=== PATIENT | female | born 1955 | race Caucasian/White ===

== ENCOUNTER → 2019-06-01 | Outpatient (CLI) | payer OTHER ==
[~2019-06-01] MED LIST: ALBUTEROL SULF8.5 GM IH; CLONAZEPAM0.5 MG PO; CLONIDINE HCL0.1 MG PO; DICYCLOMINE HCL20 MG PO; DIOVAN320 MG PO; GABAPENTIN300 MG PO; HYDROCODON-ACE1 EAC3 PO; LEVOTHYROXINE25 MCG PO; MECLIZINE HCL12.5 MG PO; MELOXICAM15 MG PO; NORTRIPTYLINE H25 MG PO; OMEPRAZOLE40 MG PO; PREDNISONE10 MG PO; SYMBICORT 16010.2 GM INH
--- NOTE | 2019-06-06 08:20 | Diagnostic Imaging Report ---
#[id number] - MGSCRBIL #BILATERAL DIGITAL SCREENING MAMMOGRAM WITH CAD: 06/01/2019 CLINICAL: Routine screening. Comparison is made to exam dated: 11/30/2012 mammogram - [facility]. There are scattered fibroglandular elements in both breasts. Current study was also evaluated with a Computer Aided Detection (CAD) system. No significant masses, calcifications, or other findings are seen in either breast. There has been no significant interval change. IMPRESSION: NEGATIVE There is no mammographic evidence of malignancy. A 1 year screening mammogram is recommended. The patient will be notified by letter of the results. JEAN KOCH M.D., mc/eliud:06/03/2019 10:09:29 Purchasing Buyer: Malinda TOBIAS)(M), [facility] letter sent: Normal Exam Mammogram BI-RADS: 1 Negative
== END ==
LOC: CARD 14:08
PROVIDERS: ATTEND Internal Medicine
DX: I73.9 Peripheral vascular disease, unspecified (principal); Z12.31 Encounter for screening mammogram for malignant neoplasm of breast
CPT/HCPCS: 77067; 93925

== ENCOUNTER → 2020-07-20 | Outpatient (CLI) | payer OTHER | LOC: MAMMO 14:00 | PROVIDERS: ATTEND Internal Medicine | DX: Z12.31 Encounter for screening mammogram for malignant neoplasm of breast (principal) | CPT/HCPCS: 77067 ==

== ENCOUNTER → 2020-09-12 | Outpatient (CLI) | payer OTHER ==
--- NOTE | 2020-09-12 09:48 | Diagnostic Imaging Report ---
Exam: Ultrasound extremity Limited right History: Right groin hernia Findings: Transverse and longitudinal ultrasonographic imaging was obtained of the right groin region with grayscale imaging. Additionally, comparison imaging was obtained of the left groin. No abnormal fluid collection is seen. No definite right groin hernia or peristalsing bowel is seen. Impression: No definite right groin hernia or peristalsing bowel is seen. CT scan may be of benefit. Signed by: Dr. Chris Diaz M.D. on 09/12/2020 9:45 AM
== END ==
LOC: US 09:02
PROVIDERS: ATTEND Internal Medicine
DX: K40.90 Unilateral inguinal hernia, without obstruction or gangrene, not specified as recurrent (principal)
CPT/HCPCS: 76882

== ENCOUNTER 2022-03-11 01:40 | Inpatient (IN) | payer MEDICARE, OTHER ==
[2022-03-11] VITALS (25 sets, daily range): BP systolic 90–143; BP diastolic 51–104
[~2022-03-11] VITALS: Ht 144.8 cm; Wt 45.8 kg
[2022-03-11] MEDS: IPRATROPIUM BROMIDE 0.02% 2.5 ML NEB NEB ONE ×2 (01:30→03:10)
[2022-03-11] MEDS ORDERED: ALBUTEROL SULF 0.083% NEB SOLN 3 ML NEB NEB STA (01:42)
[2022-03-11] MEDS ORDERED: ALBUTEROL SULF 0.083% NEB SOLN 3 ML NEB ONE (01:57)
[2022-03-11] MEDS ORDERED: IPRATROPIUM BROMIDE 0.02% 2.5 ML NEB ONE (01:58)
[2022-03-11] MEDS ORDERED: ACETAMINOPHEN 325 MG TAB PO ONE (02:00)
[2022-03-11] MEDS ORDERED: ACETAMINOPHEN 1000 MG/100 ML IV STA (02:02)
[2022-03-11 02:05] LABS: BASOPHILS % 0.4 % (0.0-1.0); HEMATOCRIT 48.6 % (34.2-44.1); HEMOGLOBIN 15.6 g/dL (12.0-16.0); LYMPHOCYTES # (AUTO) 2.1 (1.0-3.2); LYMPHOCYTES % 23.2 % (18.0-39.1); MEAN CORPUSCULAR HEMOGLOBIN 29.7 pg (28-32); MEAN CORPUSCULAR HGB CONC 32.1 g/dL (31-35); MEAN CORPUSCULAR VOLUME 92.6 fL (81-99); MONOCYTES # (AUTO) 0.5 (0.2-0.8); MONOCYTES % 5.7 % (4.4-11.3); NEUTROPHILS # (AUTO) 6.4 (2.1-6.9); NEUTROPHILS % 70.4 % (38.7-80.0); PLATELET COUNT 232 x10e3/uL (140-360); RED BLOOD COUNT 5.25 x10e6/uL (3.6-5.1); RED CELL DISTRIBUTION WIDTH 13.5 % (11.7-14.4)
[2022-03-11 02:15] LABS: ABG HCO3 34 mmol/L (22-26); ABG PCO2 89 mmHg (35-45); ABG PH 7.19 (7.35-7.45); ABG PO2 160 mmHg (80-105); ABG TCO2 37
[2022-03-11] MEDS ORDERED: ACETAMINOPHEN 1000 MG/100 ML 100 ML IV ONE (02:16)
[2022-03-11 02:20] LABS: ALBUMIN 3.9 g/dL (3.5-5.0); CALCIUM 8.9 mg/dL (8.4-10.2); CREATININE, SERUM 0.73 mg/dL (0.57-1.11)
[2022-03-11] MEDS ORDERED: LORAZEPAM INJ 2 MG/ML VIAL IV ONE ×3 (02:30)
[2022-03-11] MEDS ORDERED: METHYLPREDNISOLONE SOD SUCC 125 MG/2ML VIAL IV SCH (02:30)
[2022-03-11] MEDS ORDERED: METHYLPREDNISOLONE SOD SUCC 125 MG/2ML VIAL IV ONE (02:30)
[2022-03-11] MEDS ORDERED: LORAZEPAM INJ 2 MG/ML VIAL ONE (02:36)
[2022-03-11] MEDS ORDERED: METHYLPREDNISOLONE SOD SUCC 40 MG/ML VIAL 1ML ONE (02:37)
[2022-03-11 02:43] LABS: CREATINE KINASE MB 26.2 ng/mL (0-5.0)
[2022-03-11] MEDS ORDERED: ASPIRIN 81 MG CHEW TAB PO ONE (03:15)
[2022-03-11] MEDS ORDERED: AZITHROMYCIN 250 MG TAB PO SCH (03:15)
[2022-03-11 03:35] LABS: ABG PCO2 70 mmHg (35-45); ABG PH 7.28 (7.35-7.45)
[2022-03-11 03:36] LABS: ABG HCO3 33 mmol/L (22-26); ABG PO2 159 mmHg (80-105); ABG TCO2 35
[2022-03-11] MEDS ORDERED: SODIUM CHLORIDE 0.9% 250ML 250 ML ONE (03:39)
[2022-03-11] MEDS ORDERED: ACETAMINOPHEN 325 MG TAB PO PRN ×2 (06:00→11:45)
[2022-03-11] MEDS: ALBUTEROL/IPRATROPIUM 3 ML NEB NEB SCH ×5 (07:22→23:50)
[2022-03-11] MEDS: METHYLPREDNISOLONE SOD SUCC 40 MG/ML VIAL 1ML IV SCH ×4 (07:38→23:24)
[2022-03-11] MEDS ORDERED: ALBUTEROL SULFATE HFA 8GM INHALATION AEROSOL INH PRN (07:45)
[2022-03-11] MEDS: PANTOPRAZOLE SOD 40 MG TABEC PO SCH (08:06)
[2022-03-11] MEDS: LEVOTHYROXINE SODIUM 25 MCG TABLET PO SCH (08:06)
[2022-03-11] MEDS ORDERED: ASPIRIN 81 MG ENTERIC COATED PO SCH (09:00)
[2022-03-11 10:31] LABS: CREATINE KINASE MB 17.9 ng/mL (0-5.0)
[2022-03-11] MEDS: BUDESONIDE/FORMOTEROL 160/4.5MCG INHALER INH SCH ×2 (10:45→19:45)
[2022-03-11] MEDS ORDERED: ALBUTEROL/IPRATROPIUM 3 ML NEB NEB PRN (11:45)
[2022-03-11] MEDS ORDERED: DEXTROSE 50% SYRINGE 50 ML IV PRN (11:45)
[2022-03-11] MEDS ORDERED: HYDRALAZINE HCL 20 MG/ML VIAL IV PRN (11:45)
[2022-03-11] MEDS ORDERED: DIPHENHYDRAMINE HCL 25 MG CAP PO PRN (11:45)
[2022-03-11] MEDS ORDERED: POTASSIUM CHLORIDE 20 MEQ TAB CR PO PRN (11:45)
[2022-03-11] MEDS ORDERED: SIMETHICONE 80 MG CHEW PO PRN (11:45)
[2022-03-11] MEDS ORDERED: ONDANSETRON HCL INJ 2MG/ML 2ML 2 MG/ML VIAL IV PRN (11:45)
[2022-03-11] MEDS ORDERED: BENZONATATE 100 MG CAP PO PRN (11:45)
[2022-03-11] MEDS ORDERED: LIDOCAINE 4% PATCH TP PRN (11:45)
[2022-03-11] MEDS ORDERED: DOCUSATE SODIUM 100 MG CAP PO PRN (11:45)
[2022-03-11] MEDS: ASPIRIN 81 MG ENTERIC COATED PO SCH (13:56)
[2022-03-11] MEDS: METOPROLOL TARTRATE 25 MG TAB PO SCH (14:25)
[2022-03-11] MEDS ORDERED: ENOXAPARIN SOD INJ 40 MG/0.4 ML SYR SC SCH (17:00)
[2022-03-11] MEDS: ENOXAPARIN SOD INJ 40 MG/0.4 ML SYR SC SCH (17:06)
[2022-03-11 19:21] LABS: CREATINE KINASE MB 21.1 ng/mL (0-5.0)
[2022-03-11] MEDS: ATORVASTATIN 10 MG TAB PO SCH (20:27)
[2022-03-11] MEDS: LORAZEPAM 0.5 MG TAB PO PRN (20:27)
[2022-03-11] MEDS: MELATONIN 5 MG TABLET PO PRN (20:28)
[2022-03-12] VITALS (19 sets, daily range): BP systolic 91–126; BP diastolic 56–94
[2022-03-12] MEDS: ALBUTEROL/IPRATROPIUM 3 ML NEB NEB SCH ×5 (03:40→19:35)
[2022-03-12 05:07] LABS: BASOPHILS % 0.2 % (0.0-1.0); HEMATOCRIT 46.6 % (34.2-44.1); HEMOGLOBIN 14.6 g/dL (12.0-16.0); LYMPHOCYTES # (AUTO) 1.1 (1.0-3.2); LYMPHOCYTES % 8.7 % (18.0-39.1); MEAN CORPUSCULAR HEMOGLOBIN 29.4 pg (28-32); MEAN CORPUSCULAR HGB CONC 31.3 g/dL (31-35); MONOCYTES # (AUTO) 0.8 (0.2-0.8); MONOCYTES % 6.2 % (4.4-11.3); NEUTROPHILS # (AUTO) 10.7 (2.1-6.9); NEUTROPHILS % 84.6 % (38.7-80.0); PLATELET COUNT 231 x10e3/uL (140-360); RED BLOOD COUNT 4.96 x10e6/uL (3.6-5.1); RED CELL DISTRIBUTION WIDTH 13.8 % (11.7-14.4)
[2022-03-12 06:03] LABS: CALCIUM 9.4 mg/dL (8.4-10.2); CREATININE, SERUM 0.72 mg/dL (0.57-1.11)
[2022-03-12] MEDS: LEVOTHYROXINE SODIUM 25 MCG TABLET PO SCH (06:33)
[2022-03-12] MEDS: METHYLPREDNISOLONE SOD SUCC 40 MG/ML VIAL 1ML IV SCH (06:33)
[2022-03-12 06:59] LABS: THYROID STIMULATING HORMONE 1.306 uIU/mL (0.350-4.940)
[2022-03-12] MEDS: PANTOPRAZOLE SOD 40 MG TABEC PO SCH (07:53)
[2022-03-12] MEDS: ASPIRIN 81 MG ENTERIC COATED PO SCH (08:27)
[2022-03-12] MEDS: ENOXAPARIN SOD INJ 40 MG/0.4 ML SYR SC SCH ×2 (08:28→18:21)
[2022-03-12] MEDS: METOPROLOL TARTRATE 25 MG TAB PO SCH (08:28)
[2022-03-12] MEDS: LORAZEPAM 0.5 MG TAB PO PRN ×2 (08:30→16:40)
[2022-03-12] MEDS: BUDESONIDE/FORMOTEROL 160/4.5MCG INHALER INH SCH ×2 (08:45→19:35)
[2022-03-12] MEDS ORDERED: FUROSEMIDE 20 MG TAB PO SCH (10:15)
[2022-03-12] MEDS: LISINOPRIL 2.5 MG TAB PO SCH (11:26)
[2022-03-12] MEDS ORDERED: ZIPRASIDONE 20 MG VIAL IM ONE (15:30)
[2022-03-12 15:50] LABS: ABG PCO2 103 mmHg (35-45); ABG PH 7.11 (7.35-7.45); ABG PO2 307 mmHg (80-105); ABG TCO2 35
[2022-03-12 15:51] LABS: ABG HCO3 32 mmol/L (22-26)
[2022-03-12] MEDS: METHYLPREDNISOLONE SOD SUCC 125 MG/2ML VIAL IV SCH (16:40)
[2022-03-12 17:22] LABS: ABG HCO3 36 mmol/L (22-26); ABG PCO2 81 mmHg (35-45); ABG PH 7.25 (7.35-7.45); ABG PO2 225 mmHg (80-105); ABG TCO2 38
[2022-03-12] MEDS: ATORVASTATIN 10 MG TAB PO SCH (20:31)
[2022-03-12] MEDS ORDERED: METHYLPREDNISOLONE SOD SUCC 40 MG/ML VIAL 1ML IV SCH (21:00)
[2022-03-13] VITALS (16 sets, daily range): BP systolic 87–118; BP diastolic 48–78
[2022-03-13] MEDS: ALBUTEROL/IPRATROPIUM 3 ML NEB NEB SCH ×7 (00:15→22:45)
[2022-03-13] MEDS: METHYLPREDNISOLONE SOD SUCC 125 MG/2ML VIAL IV SCH ×2 (04:08→17:00)
[2022-03-13 05:00] LABS: BASOPHILS % 0.1 % (0.0-1.0); HEMATOCRIT 44.4 % (34.2-44.1); HEMOGLOBIN 13.8 g/dL (12.0-16.0); LYMPHOCYTES # (AUTO) 1.4 (1.0-3.2); LYMPHOCYTES % 14.8 % (18.0-39.1); MEAN CORPUSCULAR HEMOGLOBIN 29.5 pg (28-32); MEAN CORPUSCULAR HGB CONC 31.1 g/dL (31-35); MEAN CORPUSCULAR VOLUME 94.9 fL (81-99); MONOCYTES # (AUTO) 0.5 (0.2-0.8); MONOCYTES % 4.6 % (4.4-11.3); NEUTROPHILS # (AUTO) 7.8 (2.1-6.9); NEUTROPHILS % 80.2 % (38.7-80.0); PLATELET COUNT 247 x10e3/uL (140-360); RED BLOOD COUNT 4.68 x10e6/uL (3.6-5.1); RED CELL DISTRIBUTION WIDTH 14.1 % (11.7-14.4)
[2022-03-13 05:28] LABS: ANION GAP 13.2 mmol/L (8-16); CALCIUM 8.4 mg/dL (8.4-10.2); CREATININE, SERUM 0.66 mg/dL (0.57-1.11); POTASSIUM 4.2 mmol/L (3.5-5.1)
[2022-03-13] MEDS: LEVOTHYROXINE SODIUM 25 MCG TABLET PO SCH (06:08)
[2022-03-13] MEDS: BUDESONIDE/FORMOTEROL 160/4.5MCG INHALER INH SCH ×2 (07:00→19:55)
[2022-03-13] MEDS: PANTOPRAZOLE SOD 40 MG TABEC PO SCH (08:05)
[2022-03-13 09:17] LABS: ABG HCO3 38 mmol/L (22-26); ABG PCO2 68 mmHg (35-45); ABG PH 7.36 (7.35-7.45); ABG PO2 52 mmHg (80-105); ABG TCO2 40
[2022-03-13] MEDS: ENOXAPARIN SOD INJ 40 MG/0.4 ML SYR SC SCH ×2 (09:31→17:48)
[2022-03-13] MEDS: NORTRIPTYLINE HCL 25 MG CAP PO SCH (09:32)
[2022-03-13] MEDS: ASPIRIN 81 MG ENTERIC COATED PO SCH (09:34)
[2022-03-13] MEDS: FUROSEMIDE INJ 10 MG/ML 2 ML VIAL IV SCH (09:34)
[2022-03-13] MEDS: METOPROLOL TARTRATE 25 MG TAB PO SCH (09:34)
[2022-03-13] MEDS: LORAZEPAM 0.5 MG TAB PO PRN ×2 (11:28→20:13)
[2022-03-13] MEDS: LISINOPRIL 2.5 MG TAB PO SCH (11:37)
[2022-03-13] MEDS: ATORVASTATIN 10 MG TAB PO SCH (20:00)
[2022-03-13] MEDS: MELATONIN 5 MG TABLET PO PRN (21:12)
[2022-03-14] VITALS (25 sets, daily range): BP systolic 77–232; BP diastolic 47–165
[2022-03-14] MEDS: METHYLPREDNISOLONE SOD SUCC 125 MG/2ML VIAL IV SCH ×2 (03:43→15:38)
[2022-03-14] MEDS: ALBUTEROL/IPRATROPIUM 3 ML NEB NEB SCH ×6 (03:45→23:00)
[2022-03-14 05:00] LABS: BASOPHILS % 0.1 % (0.0-1.0); EOSINOPHILS % 0.1 % (0.0-6.0); HEMATOCRIT 44.5 % (34.2-44.1); HEMOGLOBIN 13.5 g/dL (12.0-16.0); LYMPHOCYTES # (AUTO) 1.1 (1.0-3.2); LYMPHOCYTES % 15.8 % (18.0-39.1); MEAN CORPUSCULAR HEMOGLOBIN 29.2 pg (28-32); MEAN CORPUSCULAR HGB CONC 30.3 g/dL (31-35); MEAN CORPUSCULAR VOLUME 96.3 fL (81-99); MONOCYTES # (AUTO) 0.4 (0.2-0.8); MONOCYTES % 5.5 % (4.4-11.3); NEUTROPHILS # (AUTO) 5.3 (2.1-6.9); NEUTROPHILS % 78.2 % (38.7-80.0); PLATELET COUNT 227 x10e3/uL (140-360); RED BLOOD COUNT 4.62 x10e6/uL (3.6-5.1)
[2022-03-14 05:24] LABS: ALBUMIN 2.8 g/dL (3.5-5.0); ALBUMIN/GLOBULIN RATIO 0.9 (0.8-2.0); ANION GAP 13.7 mmol/L (8-16); CALCIUM 8.5 mg/dL (8.4-10.2); CREATININE, SERUM 0.7 mg/dL (0.57-1.11); POTASSIUM 3.7 mmol/L (3.5-5.1)
[2022-03-14] MEDS: LEVOTHYROXINE SODIUM 25 MCG TABLET PO SCH (06:37)
[2022-03-14] MEDS: BUDESONIDE/FORMOTEROL 160/4.5MCG INHALER INH SCH ×2 (07:00→19:40)
[2022-03-14] MEDS: PANTOPRAZOLE SOD 40 MG TABEC PO SCH (07:53)
[2022-03-14] MEDS: ASPIRIN 81 MG ENTERIC COATED PO SCH (07:54)
[2022-03-14] MEDS: NORTRIPTYLINE HCL 25 MG CAP PO SCH (07:56)
[2022-03-14] MEDS: METOPROLOL TARTRATE 25 MG TAB PO SCH (07:56)
[2022-03-14] MEDS: LISINOPRIL 2.5 MG TAB PO SCH (08:04)
[2022-03-14] MEDS: FUROSEMIDE INJ 10 MG/ML 2 ML VIAL IV SCH (08:04)
[2022-03-14] MEDS: ENOXAPARIN SOD INJ 40 MG/0.4 ML SYR SC SCH ×2 (08:30→17:20)
[2022-03-14] MEDS: LORAZEPAM 0.5 MG TAB PO PRN ×2 (13:00→19:06)
[2022-03-14] MEDS: ATORVASTATIN 10 MG TAB PO SCH (20:14)
[2022-03-14] MEDS: MELATONIN 5 MG TABLET PO PRN (21:51)
[2022-03-15] VITALS (24 sets, daily range): BP systolic 78–161; BP diastolic 51–105
[2022-03-15] MEDS: METHYLPREDNISOLONE SOD SUCC 125 MG/2ML VIAL IV SCH ×2 (03:58→15:43)
[2022-03-15] MEDS: ALBUTEROL/IPRATROPIUM 3 ML NEB NEB SCH ×6 (04:05→23:30)
[2022-03-15 04:56] LABS: BASOPHILS % 0.1 % (0.0-1.0); EOSINOPHILS % 0.3 % (0.0-6.0); HEMATOCRIT 43.2 % (34.2-44.1); HEMOGLOBIN 13.4 g/dL (12.0-16.0); LYMPHOCYTES # (AUTO) 1.6 (1.0-3.2); LYMPHOCYTES % 23.4 % (18.0-39.1); MEAN CORPUSCULAR HEMOGLOBIN 29.2 pg (28-32); MEAN CORPUSCULAR VOLUME 94.1 fL (81-99); MONOCYTES # (AUTO) 0.4 (0.2-0.8); MONOCYTES % 5.8 % (4.4-11.3); NEUTROPHILS # (AUTO) 4.8 (2.1-6.9); PLATELET COUNT 240 x10e3/uL (140-360); RED BLOOD COUNT 4.59 x10e6/uL (3.6-5.1); RED CELL DISTRIBUTION WIDTH 13.6 % (11.7-14.4)
[2022-03-15] MEDS: LEVOTHYROXINE SODIUM 25 MCG TABLET PO SCH (04:57)
[2022-03-15 05:20] LABS: ALBUMIN 2.9 g/dL (3.5-5.0); ANION GAP 13.1 mmol/L (8-16); CALCIUM 8.7 mg/dL (8.4-10.2); CREATININE, SERUM 0.56 mg/dL (0.57-1.11); POTASSIUM 4.1 mmol/L (3.5-5.1)
[2022-03-15] MEDS: BUDESONIDE/FORMOTEROL 160/4.5MCG INHALER INH SCH ×2 (07:10→19:55)
[2022-03-15] MEDS: PANTOPRAZOLE SOD 40 MG TABEC PO SCH (07:54)
[2022-03-15] MEDS: ASPIRIN 81 MG ENTERIC COATED PO SCH (08:03)
[2022-03-15] MEDS: FUROSEMIDE INJ 10 MG/ML 2 ML VIAL IV SCH (08:03)
[2022-03-15] MEDS: LORAZEPAM 0.5 MG TAB PO PRN ×3 (08:04→21:04)
[2022-03-15] MEDS: METOPROLOL TARTRATE 25 MG TAB PO SCH (08:04)
[2022-03-15] MEDS: LISINOPRIL 2.5 MG TAB PO SCH (08:04)
[2022-03-15] MEDS: NORTRIPTYLINE HCL 25 MG CAP PO SCH (08:04)
[2022-03-15] MEDS: ENOXAPARIN SOD INJ 40 MG/0.4 ML SYR SC SCH ×2 (09:00→16:50)
[2022-03-15] MEDS: NICOTINE 21 MG/EA PATCH TOP SCH (14:04)
[2022-03-15] MEDS: MELATONIN 5 MG TABLET PO PRN (21:04)
[2022-03-15] MEDS: ATORVASTATIN 10 MG TAB PO SCH (21:04)
[2022-03-16] VITALS (25 sets, daily range): BP systolic 101–190; BP diastolic 65–103
[2022-03-16] MEDS: ALBUTEROL/IPRATROPIUM 3 ML NEB NEB SCH ×6 (03:40→23:44)
[2022-03-16] MEDS: METHYLPREDNISOLONE SOD SUCC 125 MG/2ML VIAL IV SCH ×2 (04:00→15:47)
[2022-03-16] MEDS: LEVOTHYROXINE SODIUM 25 MCG TABLET PO SCH (05:03)
[2022-03-16] MEDS: LORAZEPAM 0.5 MG TAB PO PRN ×3 (05:04→20:00)
[2022-03-16 05:25] LABS: BASOPHILS % 0.1 % (0.0-1.0); EOSINOPHILS % 0.1 % (0.0-6.0); HEMATOCRIT 47.1 % (34.2-44.1); HEMOGLOBIN 14.6 g/dL (12.0-16.0); LYMPHOCYTES # (AUTO) 1.9 (1.0-3.2); LYMPHOCYTES % 20.2 % (18.0-39.1); MEAN CORPUSCULAR HEMOGLOBIN 29.4 pg (28-32); MONOCYTES # (AUTO) 0.6 (0.2-0.8); MONOCYTES % 6.3 % (4.4-11.3); NEUTROPHILS # (AUTO) 6.7 (2.1-6.9); NEUTROPHILS % 72.8 % (38.7-80.0); PLATELET COUNT 258 x10e3/uL (140-360); RED BLOOD COUNT 4.96 x10e6/uL (3.6-5.1); RED CELL DISTRIBUTION WIDTH 13.6 % (11.7-14.4)
[2022-03-16 05:53] LABS: ALBUMIN 3.5 g/dL (3.5-5.0); ALBUMIN/GLOBULIN RATIO 1.1 (0.8-2.0); ANION GAP 13.5 mmol/L (8-16); CALCIUM 9.6 mg/dL (8.4-10.2); CREATININE, SERUM 0.68 mg/dL (0.57-1.11); POTASSIUM 3.5 mmol/L (3.5-5.1)
[2022-03-16] MEDS: BUDESONIDE/FORMOTEROL 160/4.5MCG INHALER INH SCH ×2 (07:08→19:13)
[2022-03-16] MEDS: PANTOPRAZOLE SOD 40 MG TABEC PO SCH (08:00)
[2022-03-16] MEDS: ASPIRIN 81 MG ENTERIC COATED PO SCH (08:06)
[2022-03-16] MEDS: FUROSEMIDE INJ 10 MG/ML 2 ML VIAL IV SCH (08:06)
[2022-03-16] MEDS: METOPROLOL TARTRATE 25 MG TAB PO SCH (08:07)
[2022-03-16] MEDS: LISINOPRIL 2.5 MG TAB PO SCH (08:07)
[2022-03-16] MEDS: NORTRIPTYLINE HCL 25 MG CAP PO SCH (08:07)
[2022-03-16] MEDS: NICOTINE 21 MG/EA PATCH TOP SCH (08:07)
[2022-03-16] MEDS: ENOXAPARIN SOD INJ 40 MG/0.4 ML SYR SC SCH ×2 (08:35→16:36)
[2022-03-16] MEDS: FLUTICASONE PROPIONATE NASAL SPRAY NS SCH ×2 (10:39→15:47)
[2022-03-16] MEDS: SALINE 0.65% NAS SOLN 1 SPRAY BTL PRN (10:55)
[2022-03-16] MEDS: MELATONIN 5 MG TABLET PO PRN (19:50)
[2022-03-16] MEDS: ATORVASTATIN 10 MG TAB PO SCH (20:20)
[2022-03-16] MEDS ORDERED: POTASSIUM CHLORIDE 20 MEQ TAB CR PO STA (20:51)
[2022-03-17] VITALS (27 sets, daily range): BP systolic 97–151; BP diastolic 54–99
[2022-03-17] MEDS: ALBUTEROL/IPRATROPIUM 3 ML NEB NEB SCH ×3 (03:00→11:15)
[2022-03-17] MEDS: METHYLPREDNISOLONE SOD SUCC 40 MG/ML VIAL 1ML IV SCH ×2 (03:24→03:50)
[2022-03-17] MEDS: LEVOTHYROXINE SODIUM 25 MCG TABLET PO SCH (06:00)
[2022-03-17] MEDS: BUDESONIDE/FORMOTEROL 160/4.5MCG INHALER INH SCH (07:00)
[2022-03-17] MEDS: ASPIRIN 81 MG ENTERIC COATED PO SCH (08:36)
[2022-03-17] MEDS: FUROSEMIDE INJ 10 MG/ML 2 ML VIAL IV SCH (08:36)
[2022-03-17] MEDS: PANTOPRAZOLE SOD 40 MG TABEC PO SCH (08:36)
[2022-03-17] MEDS: FLUTICASONE PROPIONATE NASAL SPRAY NS SCH ×2 (08:36→17:16)
[2022-03-17] MEDS: NORTRIPTYLINE HCL 25 MG CAP PO SCH (08:37)
[2022-03-17] MEDS: METOPROLOL TARTRATE 25 MG TAB PO SCH (08:37)
[2022-03-17] MEDS: NICOTINE 21 MG/EA PATCH TOP SCH (08:37)
[2022-03-17] MEDS: ENOXAPARIN SOD INJ 40 MG/0.4 ML SYR SC SCH ×2 (08:37→17:16)
[2022-03-17] MEDS: LORAZEPAM 0.5 MG TAB PO PRN (08:37)
[2022-03-17] MEDS: LISINOPRIL 2.5 MG TAB PO SCH (08:37)
[2022-03-17] MEDS ORDERED: TRELEGY ELLIPT1 EAC1 PO (12:02)
[2022-03-17] MEDS ORDERED: DALIRESP500 MCG PO (12:02)
[2022-03-17] MEDS ORDERED: ALBUTEROL SULF 0.083% NEB SOLN 3 ML NEB NEB PRN (14:15)
[2022-03-17] MEDS: PREDNISONE 20 MG TAB PO SCH (15:32)
[2022-03-17] MEDS: MONTELUKAST SODIUM 10 MG TAB PO SCH (15:32)
[2022-03-17] MEDS: ALBUTEROL SULF 0.083% NEB SOLN 3 ML NEB NEB SCH (19:10)
[2022-03-17] MEDS: HYDROXYZINE HCL 10 MG TAB PO PRN (19:38)
[2022-03-17] MEDS: ATORVASTATIN 10 MG TAB PO SCH (19:39)
[2022-03-18] VITALS (23 sets, daily range): BP systolic 111–153; BP diastolic 49–120
[2022-03-18] MEDS: ALBUTEROL SULF 0.083% NEB SOLN 3 ML NEB NEB SCH ×4 (01:00→19:07)
[2022-03-18] MEDS: HYDROXYZINE HCL 10 MG TAB PO PRN ×3 (04:40→20:00)
[2022-03-18 05:01] LABS: BASOPHILS % 0.3 % (0.0-1.0); EOSINOPHILS % 0.4 % (0.0-6.0); HEMATOCRIT 46.1 % (34.2-44.1); HEMOGLOBIN 14.1 g/dL (12.0-16.0); LYMPHOCYTES # (AUTO) 1.6 (1.0-3.2); LYMPHOCYTES % 14.6 % (18.0-39.1); MEAN CORPUSCULAR HEMOGLOBIN 29.3 pg (28-32); MEAN CORPUSCULAR HGB CONC 30.6 g/dL (31-35); MEAN CORPUSCULAR VOLUME 95.6 fL (81-99); MONOCYTES # (AUTO) 0.7 (0.2-0.8); MONOCYTES % 6.4 % (4.4-11.3); NEUTROPHILS # (AUTO) 8.4 (2.1-6.9); NEUTROPHILS % 76.8 % (38.7-80.0); PLATELET COUNT 249 x10e3/uL (140-360); RED BLOOD COUNT 4.82 x10e6/uL (3.6-5.1); RED CELL DISTRIBUTION WIDTH 13.4 % (11.7-14.4)
[2022-03-18] MEDS: LEVOTHYROXINE SODIUM 25 MCG TABLET PO SCH (05:03)
[2022-03-18 05:17] LABS: ANION GAP 13.5 mmol/L (8-16); CREATININE, SERUM 0.65 mg/dL (0.57-1.11); POTASSIUM 4.5 mmol/L (3.5-5.1)
[2022-03-18] MEDS: FUROSEMIDE INJ 10 MG/ML 2 ML VIAL IV SCH (08:20)
[2022-03-18] MEDS: ASPIRIN 81 MG ENTERIC COATED PO SCH (08:20)
[2022-03-18] MEDS: PANTOPRAZOLE SOD 40 MG TABEC PO SCH (08:20)
[2022-03-18] MEDS: LISINOPRIL 2.5 MG TAB PO SCH (08:22)
[2022-03-18] MEDS: METOPROLOL TARTRATE 25 MG TAB PO SCH (08:22)
[2022-03-18] MEDS: PREDNISONE 20 MG TAB PO SCH (08:22)
[2022-03-18] MEDS: NORTRIPTYLINE HCL 25 MG CAP PO SCH (08:22)
[2022-03-18] MEDS: ENOXAPARIN SOD INJ 40 MG/0.4 ML SYR SC SCH (08:23)
[2022-03-18] MEDS: NICOTINE 21 MG/EA PATCH TOP SCH (08:23)
[2022-03-18] MEDS: FLUTICASONE PROPIONATE NASAL SPRAY NS SCH ×2 (09:00→17:00)
[2022-03-18] MEDS: MONTELUKAST SODIUM 10 MG TAB PO SCH (10:23)
[2022-03-18] MEDS: GUAIFENESIN/CODEINE 5 ML LIQD PO PRN (16:01)
[2022-03-18] MEDS: ATORVASTATIN 10 MG TAB PO SCH (20:00)
[2022-03-18] MEDS: MELATONIN 5 MG TABLET PO PRN (21:06)
[2022-03-19] VITALS (20 sets, daily range): BP systolic 101–158; BP diastolic 46–122
[2022-03-19] MEDS: ALBUTEROL SULF 0.083% NEB SOLN 3 ML NEB NEB SCH ×4 (00:50→20:35)
[2022-03-19] MEDS: LEVOTHYROXINE SODIUM 25 MCG TABLET PO SCH (06:24)
[2022-03-19] MEDS: PANTOPRAZOLE SOD 40 MG TABEC PO SCH (08:29)
[2022-03-19] MEDS: FUROSEMIDE INJ 10 MG/ML 2 ML VIAL IV SCH (08:29)
[2022-03-19] MEDS: METOPROLOL TARTRATE 25 MG TAB PO SCH (08:30)
[2022-03-19] MEDS: NORTRIPTYLINE HCL 25 MG CAP PO SCH (08:30)
[2022-03-19] MEDS: ASPIRIN 81 MG ENTERIC COATED PO SCH (08:31)
[2022-03-19] MEDS: MONTELUKAST SODIUM 10 MG TAB PO SCH (08:32)
[2022-03-19] MEDS: NICOTINE 21 MG/EA PATCH TOP SCH ×2 (08:32→09:00)
[2022-03-19] MEDS: LISINOPRIL 2.5 MG TAB PO SCH (08:32)
[2022-03-19] MEDS: PREDNISONE 20 MG TAB PO SCH (08:32)
[2022-03-19] MEDS: ROFLUMILAST 500 MCG PO SCH (08:56)
[2022-03-19] MEDS: FLUTICASONE PROPIONATE NASAL SPRAY NS SCH ×3 (09:00→17:00)
[2022-03-19] MEDS: SALINE 0.65% NAS SOLN 1 SPRAY BTL PRN (09:13)
[2022-03-19] MEDS: GUAIFENESIN/CODEINE 5 ML LIQD PO PRN ×2 (09:14→20:14)
[2022-03-19] MEDS: BENZONATATE 100 MG CAP PO PRN ×2 (12:46→20:14)
[2022-03-19] MEDS: HYDROXYZINE HCL 10 MG TAB PO PRN ×2 (14:07→20:14)
[2022-03-19] MEDS: ATORVASTATIN 10 MG TAB PO SCH (20:13)
[2022-03-19] MEDS: MELATONIN 5 MG TABLET PO PRN (20:14)
[2022-03-20] VITALS (11 sets, daily range): BP systolic 104–170; BP diastolic 61–83
[2022-03-20] MEDS: ALBUTEROL SULF 0.083% NEB SOLN 3 ML NEB NEB SCH ×3 (02:20→13:08)
[2022-03-20 05:00] LABS: BASOPHILS % 0.3 % (0.0-1.0); EOSINOPHILS # (AUTO) 0.2 (0.0-0.4); EOSINOPHILS % 1.8 % (0.0-6.0); HEMATOCRIT 43.8 % (34.2-44.1); HEMOGLOBIN 13.6 g/dL (12.0-16.0); LYMPHOCYTES # (AUTO) 3.4 (1.0-3.2); LYMPHOCYTES % 26.1 % (18.0-39.1); MEAN CORPUSCULAR HEMOGLOBIN 29.1 pg (28-32); MEAN CORPUSCULAR HGB CONC 31.1 g/dL (31-35); MEAN CORPUSCULAR VOLUME 93.8 fL (81-99); MONOCYTES % 7.9 % (4.4-11.3); NEUTROPHILS % 62.4 % (38.7-80.0); PLATELET COUNT 257 x10e3/uL (140-360); RED BLOOD COUNT 4.67 x10e6/uL (3.6-5.1); RED CELL DISTRIBUTION WIDTH 13.3 % (11.7-14.4)
[2022-03-20 05:22] LABS: ANION GAP 11.9 mmol/L (8-16); CALCIUM 8.8 mg/dL (8.4-10.2); CREATININE, SERUM 0.64 mg/dL (0.57-1.11); POTASSIUM 3.9 mmol/L (3.5-5.1)
[2022-03-20] MEDS: LEVOTHYROXINE SODIUM 25 MCG TABLET PO SCH (05:25)
[2022-03-20] MEDS: FUROSEMIDE INJ 10 MG/ML 2 ML VIAL IV SCH (08:27)
[2022-03-20] MEDS: ASPIRIN 81 MG ENTERIC COATED PO SCH (08:27)
[2022-03-20] MEDS: METOPROLOL TARTRATE 25 MG TAB PO SCH (08:27)
[2022-03-20] MEDS: PANTOPRAZOLE SOD 40 MG TABEC PO SCH (08:27)
[2022-03-20] MEDS: NORTRIPTYLINE HCL 25 MG CAP PO SCH (08:27)
[2022-03-20] MEDS: FLUTICASONE PROPIONATE NASAL SPRAY NS SCH (08:27)
[2022-03-20] MEDS: ROFLUMILAST 500 MCG PO SCH (08:27)
[2022-03-20] MEDS: PREDNISONE 20 MG TAB PO SCH (08:27)
[2022-03-20] MEDS: LISINOPRIL 2.5 MG TAB PO SCH (08:28)
[2022-03-20] MEDS: MONTELUKAST SODIUM 10 MG TAB PO SCH (08:28)
[2022-03-20] MEDS: NICOTINE 21 MG/EA PATCH TOP SCH (08:28)
[2022-03-20] MEDS ORDERED: LOVASTATIN20 MG PO (13:12)
[2022-03-20] MEDS ORDERED: SINGULAIR10 MG PO (13:12)
[2022-03-21] MEDS ORDERED: LISINOPRIL 2.5 MG TAB PO SCH (09:00)
[2022-03-21] MEDS ORDERED: FUROSEMIDE 20 MG TAB PO SCH (09:00)
[2022-03-21] MEDS ORDERED: METOPROLOL SUCCINATE 25 MG TAB XL PO SCH (09:00)
== END 2022-03-20 17:27 | disposition home or self-care (01) | DRG 190 ==
LOC: ER 01:43 → ERHOLD 03:18 → ICU 04:11
PROVIDERS: ADMIT Internal Medicine; ATTEND Internal Medicine
PROC: 5A09357 Assistance with Respiratory Ventilation, Less than 24 Consecutive Hours, Continuous Positive Airway Pressure (ICD-10-PCS; principal; 2022-03-11)
PROC: 5A09357 Assistance with Respiratory Ventilation, Less than 24 Consecutive Hours, Continuous Positive Airway Pressure (ICD-10-PCS; 2022-03-12)
PROC: 5A09357 Assistance with Respiratory Ventilation, Less than 24 Consecutive Hours, Continuous Positive Airway Pressure (ICD-10-PCS; 2022-03-13)
PROC: 5A09357 Assistance with Respiratory Ventilation, Less than 24 Consecutive Hours, Continuous Positive Airway Pressure (ICD-10-PCS; 2022-03-14)
PROC: 5A09357 Assistance with Respiratory Ventilation, Less than 24 Consecutive Hours, Continuous Positive Airway Pressure (ICD-10-PCS; 2022-03-15)
PROC: 5A09357 Assistance with Respiratory Ventilation, Less than 24 Consecutive Hours, Continuous Positive Airway Pressure (ICD-10-PCS; 2022-03-16)
PROC: 5A09357 Assistance with Respiratory Ventilation, Less than 24 Consecutive Hours, Continuous Positive Airway Pressure (ICD-10-PCS; 2022-03-17)
PROC: 5A09357 Assistance with Respiratory Ventilation, Less than 24 Consecutive Hours, Continuous Positive Airway Pressure (ICD-10-PCS; 2022-03-18)
PROC: 5A09357 Assistance with Respiratory Ventilation, Less than 24 Consecutive Hours, Continuous Positive Airway Pressure (ICD-10-PCS; 2022-03-19)
DX: J44.1 Chronic obstructive pulmonary disease with (acute) exacerbation (principal); J96.02 Acute respiratory failure with hypercapnia; J96.01 Acute respiratory failure with hypoxia; I21.A1 Myocardial infarction type 2; I50.23 Acute on chronic systolic (congestive) heart failure; I11.0 Hypertensive heart disease with heart failure; F17.210 Nicotine dependence, cigarettes, uncomplicated; E78.5 Hyperlipidemia, unspecified; E03.9 Hypothyroidism, unspecified; Z85.3 Personal history of malignant neoplasm of breast; Z82.49 Family history of ischemic heart disease and other diseases of the circulatory system; Z80.9 Family history of malignant neoplasm, unspecified; Z20.822 Contact with and (suspected) exposure to COVID-19; Z91.19 Patient's noncompliance with other medical treatment and regimen; F41.9 Anxiety disorder, unspecified; F32.A Depression, unspecified; K21.9 Gastro-esophageal reflux disease without esophagitis; J30.9 Allergic rhinitis, unspecified; Z85.43 Personal history of malignant neoplasm of ovary; I25.10 Atherosclerotic heart disease of native coronary artery without angina pectoris
CPT/HCPCS: 36415; 36600; 71045; 80048; 80053; 80320; 82550; 82553; 82805; 83036; 83605; 83735; 83880; 84100; 84443; 84484; 85025; 87040; 93306; 94640; 94660; 94664; 94799; 97139; 99285; J0456; J0696; J1650; J1940; J2060; J2920; J2930; J3410; J7050; J7512; U0002

== ENCOUNTER 2022-12-12 06:59 | Emergency (ER) | payer MEDICARE, OTHER ==
[~2022-12-12] VITALS: Ht 144.8 cm; Wt 45.8 kg
[~2022-12-12 06:59] MED LIST changes: +DALIRESP500 MCG PO; +LOVASTATIN20 MG PO; +SINGULAIR10 MG PO; +TRELEGY ELLIPT1 EAC1 PO
[2022-12-12] MEDS ORDERED: HYDROCODONE/APAP 5MG-325MG TAB PO ONE (07:30)
[2022-12-12] MEDS ORDERED: ULTRAM 50MG50 MG PO (09:38)
[2022-12-12] MEDS ORDERED: PREDNISONE20 MG PO (09:38)
== END 2022-12-12 09:47 | disposition home or self-care (01) ==
LOC: ER 07:03
DX: M65.4 Radial styloid tenosynovitis [de Quervain] (principal); M19.041 Primary osteoarthritis, right hand; I10 Essential (primary) hypertension; J44.9 Chronic obstructive pulmonary disease, unspecified; K21.9 Gastro-esophageal reflux disease without esophagitis; F41.9 Anxiety disorder, unspecified; M54.9 Dorsalgia, unspecified; G89.29 Other chronic pain
CPT/HCPCS: 99284

== ENCOUNTER 2022-12-19 19:08 | Inpatient (IN) | payer MEDICARE, OTHER ==
[~2022-12-19] VITALS: Ht 144.8 cm; Wt 45.8 kg
[~2022-12-19 19:08] MED LIST changes: +PREDNISONE20 MG PO; +ULTRAM 50MG50 MG PO
[2022-12-19] MEDS ORDERED: ALBUTEROL/IPRATROPIUM 3 ML NEB NEB STA ×2 (19:13→20:26)
[2022-12-19] MEDS ORDERED: METHYLPREDNISOLONE SOD SUCC 125 MG/2ML VIAL IV STA (19:13)
[2022-12-19 20:13] LABS: BASOPHILS # (AUTO) 0.1 (0.0-0.1); BASOPHILS % 0.4 % (0.0-1.0); EOSINOPHILS # (AUTO) 0.1 (0.0-0.4); EOSINOPHILS % 0.5 % (0.0-6.0); HEMATOCRIT 45.9 % (34.2-44.1); HEMOGLOBIN 15.4 g/dL (12.0-16.0); LYMPHOCYTES # (AUTO) 1.5 (1.0-3.2); LYMPHOCYTES % 11.5 % (18.0-39.1); MEAN CORPUSCULAR HEMOGLOBIN 29.3 pg (28-32); MEAN CORPUSCULAR HGB CONC 33.6 g/dL (31-35); MEAN CORPUSCULAR VOLUME 87.4 fL (81-99); MONOCYTES # (AUTO) 1.1 (0.2-0.8); MONOCYTES % 8.2 % (4.4-11.3); NEUTROPHILS # (AUTO) 10.1 (2.1-6.9); NEUTROPHILS % 79.1 % (38.7-80.0); PLATELET COUNT 283 x10e3/uL (140-360); RED BLOOD COUNT 5.25 x10e6/uL (3.6-5.1); RED CELL DISTRIBUTION WIDTH 12.3 % (11.7-14.4)
[2022-12-19 20:33] LABS: ALBUMIN 3.4 g/dL (3.5-5.0); ALBUMIN/GLOBULIN RATIO 0.8 (0.8-2.0); ANION GAP 15.7 mmol/L (8-16); CALCIUM 10.1 mg/dL (8.4-10.2); CREATININE, SERUM 0.62 mg/dL (0.57-1.11); POTASSIUM 3.7 mmol/L (3.5-5.1)
[2022-12-19 20:40] LABS: CREATINE KINASE MB 5.5 ng/mL (0-5.0)
[2022-12-19] MEDS: ENOXAPARIN SOD INJ 60 MG/0.6 ML SYR SC SCH (21:00)
[2022-12-19] MEDS ORDERED: MELATONIN 5 MG TABLET PO PRN (23:00)
[2022-12-19] MEDS ORDERED: TRAMADOL HCL 50 MG TAB PO PRN (23:00)
[2022-12-19] MEDS ORDERED: DIPHENHYDRAMINE HCL 25 MG CAP PO PRN (23:00)
[2022-12-19] MEDS ORDERED: ASPIRIN 81 MG CHEW TAB PO ONE (23:00)
[2022-12-19] MEDS ORDERED: POTASSIUM CHLORIDE 20 MEQ TAB CR PO PRN (23:00)
[2022-12-19] MEDS ORDERED: SIMETHICONE 80 MG CHEW PO PRN (23:00)
[2022-12-19] MEDS ORDERED: DOCUSATE SODIUM 100 MG CAP PO PRN (23:00)
[2022-12-19] MEDS ORDERED: ACETAMINOPHEN 325 MG TAB PO PRN (23:00)
[2022-12-19] MEDS ORDERED: HYDRALAZINE HCL 20 MG/ML VIAL IV PRN (23:00)
[2022-12-19] MEDS ORDERED: LIDOCAINE 4% PATCH TP PRN (23:00)
[2022-12-19] MEDS: ATORVASTATIN 40 MG TAB PO SCH (23:00)
[2022-12-19] MEDS ORDERED: ONDANSETRON HCL INJ 2MG/ML 2ML 2 MG/ML VIAL IV PRN (23:00)
[2022-12-19 23:04] LABS: CREATINE KINASE MB 5.3 ng/mL (0-5.0)
[2022-12-19] MEDS ORDERED: GUAIFENESIN/CODEINE 5 ML LIQD PO STA (23:27)
[2022-12-20] VITALS (7 sets, daily range): BP systolic 104–144; BP diastolic 38–63
[2022-12-20] MEDS: METHYLPREDNISOLONE SOD SUCC 40 MG/ML VIAL 1ML IV SCH ×5 (02:00→23:52)
[2022-12-20 05:56] LABS: BASOPHILS % 0.2 % (0.0-1.0); HEMATOCRIT 44.7 % (34.2-44.1); LYMPHOCYTES # (AUTO) 0.8 (1.0-3.2); LYMPHOCYTES % 7.3 % (18.0-39.1); MEAN CORPUSCULAR HEMOGLOBIN 29.7 pg (28-32); MEAN CORPUSCULAR HGB CONC 33.6 g/dL (31-35); MEAN CORPUSCULAR VOLUME 88.5 fL (81-99); MONOCYTES # (AUTO) 0.2 (0.2-0.8); MONOCYTES % 2.1 % (4.4-11.3); NEUTROPHILS # (AUTO) 10.1 (2.1-6.9); NEUTROPHILS % 90.1 % (38.7-80.0); PLATELET COUNT 301 x10e3/uL (140-360); RED BLOOD COUNT 5.05 x10e6/uL (3.6-5.1); RED CELL DISTRIBUTION WIDTH 12.3 % (11.7-14.4)
[2022-12-20 06:23] LABS: ALBUMIN 3.2 g/dL (3.5-5.0); ALBUMIN/GLOBULIN RATIO 0.8 (0.8-2.0); ANION GAP 15.1 mmol/L (8-16); CALCIUM 9.9 mg/dL (8.4-10.2); CREATININE, SERUM 0.71 mg/dL (0.57-1.11); POTASSIUM 4.1 mmol/L (3.5-5.1)
[2022-12-20 06:55] LABS: CREATINE KINASE MB 5.3 ng/mL (0-5.0)
[2022-12-20 06:57] LABS: CHOL/HDL RATIO 2.9 (3.0-3.6)
[2022-12-20 07:17] LABS: THYROID STIMULATING HORMONE 0.281 uIU/mL (0.350-4.940)
[2022-12-20] MEDS: PANTOPRAZOLE SOD 40 MG TABEC PO SCH (08:01)
[2022-12-20] MEDS: ASPIRIN 81 MG ENTERIC COATED PO SCH (08:01)
[2022-12-20] MEDS: ENOXAPARIN SOD INJ 60 MG/0.6 ML SYR SC SCH ×2 (08:02→20:43)
[2022-12-20] MEDS ORDERED: METHYLPREDNISOLONE SOD SUCC 40 MG/ML VIAL 1ML IV SCH (09:00)
[2022-12-20 12:46] LABS: CREATINE KINASE MB 4.9 ng/mL (0-5.0)
[2022-12-20] MEDS: BENZONATATE 100 MG CAP PO PRN ×2 (12:46→20:42)
[2022-12-20] MEDS: ALBUTEROL/IPRATROPIUM 3 ML NEB NEB PRN (20:15)
[2022-12-20] MEDS: ATORVASTATIN 40 MG TAB PO SCH (20:42)
[2022-12-21] VITALS (8 sets, daily range): BP systolic 122–164; BP diastolic 68–87
[2022-12-21] MEDS: METHYLPREDNISOLONE SOD SUCC 40 MG/ML VIAL 1ML IV SCH ×3 (05:39→17:14)
[2022-12-21] MEDS: ASPIRIN 81 MG ENTERIC COATED PO SCH (08:34)
[2022-12-21] MEDS: BENZONATATE 100 MG CAP PO PRN (08:34)
[2022-12-21] MEDS: PANTOPRAZOLE SOD 40 MG TABEC PO SCH (08:34)
[2022-12-21] MEDS: ENOXAPARIN SOD INJ 60 MG/0.6 ML SYR SC SCH ×3 (08:35→22:02)
[2022-12-21] MEDS ORDERED: SODIUM CHLORIDE 0.9% 250ML 250 ML ONE (09:37)
[2022-12-21] MEDS: ALBUTEROL/IPRATROPIUM 3 ML NEB NEB PRN (11:09)
[2022-12-21] MEDS: GUAIFENESIN/CODEINE 5 ML LIQD PO PRN ×2 (11:49→22:09)
[2022-12-21] MEDS: BUDESONIDE/FORMOTEROL 160/4.5MCG INHALER INH SCH (19:45)
[2022-12-21] MEDS: ATORVASTATIN 40 MG TAB PO SCH (22:01)
[2022-12-22] VITALS (9 sets, daily range): BP systolic 109–158; BP diastolic 59–96
[2022-12-22] MEDS: METHYLPREDNISOLONE SOD SUCC 40 MG/ML VIAL 1ML IV SCH ×5 (01:08→23:44)
[2022-12-22] MEDS: LEVOTHYROXINE SODIUM 25 MCG TABLET PO SCH (05:42)
[2022-12-22 06:14] LABS: HEMATOCRIT 40.5 % (34.2-44.1); HEMOGLOBIN 12.8 g/dL (12.0-16.0)
[2022-12-22 06:28] LABS: ANION GAP 12.2 mmol/L (8-16); CALCIUM 9.3 mg/dL (8.4-10.2); CREATININE, SERUM 0.69 mg/dL (0.57-1.11); POTASSIUM 4.2 mmol/L (3.5-5.1)
[2022-12-22] MEDS: BUDESONIDE/FORMOTEROL 160/4.5MCG INHALER INH SCH ×2 (06:53→22:00)
[2022-12-22] MEDS: ENOXAPARIN SOD INJ 60 MG/0.6 ML SYR SC SCH (09:00)
[2022-12-22] MEDS: ASPIRIN 81 MG ENTERIC COATED PO SCH (09:00)
[2022-12-22] MEDS: PANTOPRAZOLE SOD 40 MG TABEC PO SCH (09:30)
[2022-12-22] MEDS: MONTELUKAST SODIUM 10 MG TAB PO SCH (10:00)
[2022-12-22] MEDS ORDERED: SODIUM CHLORIDE 0.9% 1000ML 1,000 ML ONE (10:21)
[2022-12-22] MEDS ORDERED: IOPAMIDOL 370 MG/ML 100 ML INFUS..BTL INJ ONE (10:21)
[2022-12-22] MEDS ORDERED: HEPARIN SOD/SOD CHLORIDE 2,000 ML ONE (10:21)
[2022-12-22] MEDS ORDERED: NITROGLYCERIN 400 MCG/SPRAY 4.9 GM BTL ONE (10:22)
[2022-12-22] MEDS ORDERED: LIDOCAINE HCL 1% LOCAL INJ 20 ML VIAL ONE (10:22)
[2022-12-22] MEDS ORDERED: FENTANYL CITRATE/PF 100MCG/2 ML INJ ONE (10:23)
[2022-12-22] MEDS ORDERED: MIDAZOLAM HCL 2 MG/2 ML VIAL ONE (10:23)
[2022-12-22] MEDS: GUAIFENESIN/CODEINE 5 ML LIQD PO PRN ×2 (12:00→20:27)
[2022-12-22] MEDS ORDERED: ASPIRIN EC81 MG PO (13:50)
[2022-12-22] MEDS ORDERED: PREDNISONE20 MG PO (13:50)
[2022-12-22] MEDS ORDERED: CEFDINIR300 MG PO (13:51)
[2022-12-22] MEDS ORDERED: Benzonatate PO (14:02)
[2022-12-22] MEDS ORDERED: ONDANSETRON HCL 4 MG ORAL DISINTEGRATING TAB PO PRN (14:30)
[2022-12-22] MEDS ORDERED: ENOXAPARIN SOD INJ 40 MG/0.4 ML SYR SC SCH (17:00)
[2022-12-22] MEDS: ATORVASTATIN 40 MG TAB PO SCH (20:23)
[2022-12-22] MEDS: BENZONATATE 100 MG CAP PO PRN (23:44)
[2022-12-23 00:15] VITALS: BP 145/71
[2022-12-23 04:00] VITALS: BP 149/71
[2022-12-23] MEDS: GUAIFENESIN/CODEINE 5 ML LIQD PO PRN ×2 (05:21→12:07)
[2022-12-23] MEDS: LEVOTHYROXINE SODIUM 25 MCG TABLET PO SCH (05:21)
[2022-12-23] MEDS: METHYLPREDNISOLONE SOD SUCC 40 MG/ML VIAL 1ML IV SCH ×2 (05:21→12:05)
[2022-12-23] MEDS: BUDESONIDE/FORMOTEROL 160/4.5MCG INHALER INH SCH (07:39)
[2022-12-23 08:00] VITALS: BP 148/74
[2022-12-23 08:35] VITALS: BP 148/74
[2022-12-23] MEDS: MONTELUKAST SODIUM 10 MG TAB PO SCH (09:03)
[2022-12-23] MEDS: ASPIRIN 81 MG ENTERIC COATED PO SCH (09:04)
[2022-12-23] MEDS: PANTOPRAZOLE SOD 40 MG TABEC PO SCH (09:07)
[2022-12-23 12:24] VITALS: BP 152/79
[2022-12-23] MEDS ORDERED: LOSARTAN POTASS25 MG PO (15:50)
[2022-12-23] MEDS ORDERED: METOPROLOL TART25 MG PO (15:52)
[2022-12-23 16:39] VITALS: BP 161/72
== END 2022-12-23 17:08 | disposition home or self-care (01) | DRG 190 ==
LOC: ER 19:22 → ERHOLD 20:39 → MED/SURG 12-20 07:36 → MED/SURG3 12-20 17:56
PROVIDERS: ADMIT Internal Medicine; ATTEND Internal Medicine
PROC: 4A023N7 Measurement of Cardiac Sampling and Pressure, Left Heart, Percutaneous Approach (ICD-10-PCS; principal; 2022-12-22)
PROC: B2111ZZ Fluoroscopy of Multiple Coronary Arteries using Low Osmolar Contrast (ICD-10-PCS; 2022-12-22)
DX: J44.1 Chronic obstructive pulmonary disease with (acute) exacerbation (principal); I21.A1 Myocardial infarction type 2; E44.0 Moderate protein-calorie malnutrition; I50.22 Chronic systolic (congestive) heart failure; I25.110 Atherosclerotic heart disease of native coronary artery with unstable angina pectoris; I11.0 Hypertensive heart disease with heart failure; E78.5 Hyperlipidemia, unspecified; Z20.822 Contact with and (suspected) exposure to COVID-19; E03.9 Hypothyroidism, unspecified; F41.9 Anxiety disorder, unspecified; F32.A Depression, unspecified; F17.210 Nicotine dependence, cigarettes, uncomplicated; Z68.21 Body mass index [BMI] 21.0-21.9, adult; Z99.81 Dependence on supplemental oxygen
CPT/HCPCS: 36415; 71045; 80048; 80053; 80061; 82550; 82553; 82948; 83036; 83735; 83880; 84100; 84443; 84484; 85014; 85018; 85025; 93005; 93306; 93458; 94640; 94664; 94799; 99152; 99284; C1760; C1887; J0696; J1650; J2001; J2250; J2405; J2920; J2930; J3010; J7030; J7050; Q9967

== ENCOUNTER 2023-03-30 12:16 | Inpatient (IN) | payer MEDICARE, OTHER ==
[2023-03-30] VITALS (14 sets, daily range): BP systolic 87–146; BP diastolic 54–98; PULSE 97–120; RESP 19–38; TEMP 98.3–99.8; O2SAT 95–100
[~2023-03-30] VITALS: Ht 149.9 cm; Wt 46.8 kg
[~2023-03-30 12:16] MED LIST changes: +ASPIRIN EC81 MG PO; +Benzonatate PO; +CEFDINIR300 MG PO; +LOSARTAN POTASS25 MG PO; +METOPROLOL TART25 MG PO
[2023-03-30] MEDS ORDERED: ALBUTEROL/IPRATROPIUM 3 ML NEB ONE (12:28)
[2023-03-30] MEDS ORDERED: MAGNESIUM SULFATE 2GM/50ML 50 ML IV ONE (12:30)
[2023-03-30] MEDS ORDERED: ALBUTEROL/IPRATROPIUM 3 ML NEB NEB ONE (12:30)
[2023-03-30 12:43] LABS: BASOPHILS # (AUTO) 0.1 (0.0-0.1); BASOPHILS % 0.7 % (0.0-1.0); EOSINOPHILS # (AUTO) 0.1 (0.0-0.4); EOSINOPHILS % 0.7 % (0.0-6.0); HEMATOCRIT 49.3 % (34.2-44.1); HEMOGLOBIN 15.8 g/dL (12.0-16.0); LYMPHOCYTES # (AUTO) 4.3 (1.0-3.2); LYMPHOCYTES % 38.6 % (18.0-39.1); MEAN CORPUSCULAR HEMOGLOBIN 28.9 pg (28-32); MEAN CORPUSCULAR VOLUME 90.3 fL (81-99); MONOCYTES # (AUTO) 0.8 (0.2-0.8); NEUTROPHILS # (AUTO) 5.9 (2.1-6.9); NEUTROPHILS % 52.9 % (38.7-80.0); PLATELET COUNT 335 x10e3/uL (140-360); RED BLOOD COUNT 5.46 x10e6/uL (3.6-5.1)
[2023-03-30] MEDS ORDERED: TERBUTALINE SULFATE 1 MG/ML VIAL SC ONE (12:45)
[2023-03-30 13:08] LABS: ANION GAP 16.1 mmol/L (8-16); CALCIUM 9.7 mg/dL (8.4-10.2); CREATININE, SERUM 0.79 mg/dL (0.57-1.11); POTASSIUM 4.1 mmol/L (3.5-5.1)
[2023-03-30] MEDS ORDERED: ONDANSETRON HCL INJ 2MG/ML 2ML 2 MG/ML VIAL IV PRN (13:15)
[2023-03-30] MEDS ORDERED: FUROSEMIDE INJ 10 MG/ML 2 ML VIAL IV ONE (14:00)
[2023-03-30] MEDS: ALBUTEROL/IPRATROPIUM 3 ML NEB NEB SCH ×2 (15:00→18:50)
[2023-03-30] MEDS ORDERED: SODIUM CHLORIDE 0.9% 250ML 250 ML ONE ×2 (15:41→15:53)
[2023-03-30] MEDS ORDERED: METHYLPREDNISOLONE SOD SUCC 125 MG/2ML VIAL IV SCH (19:00)
[2023-03-31] VITALS (21 sets, daily range): BP systolic 89–157; BP diastolic 55–103; PULSE 84–111; RESP 17–29; TEMP 97.3–98.9; O2SAT 92–100
[2023-03-31] MEDS: ALBUTEROL/IPRATROPIUM 3 ML NEB NEB SCH ×4 (01:30→19:20)
[2023-03-31 06:46] LABS: BASOPHILS % 0.1 % (0.0-1.0); HEMATOCRIT 43.7 % (34.2-44.1); HEMOGLOBIN 13.7 g/dL (12.0-16.0); LYMPHOCYTES # (AUTO) 1.2 (1.0-3.2); LYMPHOCYTES % 14.9 % (18.0-39.1); MEAN CORPUSCULAR HEMOGLOBIN 28.7 pg (28-32); MEAN CORPUSCULAR HGB CONC 31.4 g/dL (31-35); MEAN CORPUSCULAR VOLUME 91.4 fL (81-99); MONOCYTES # (AUTO) 0.5 (0.2-0.8); MONOCYTES % 5.7 % (4.4-11.3); NEUTROPHILS # (AUTO) 6.2 (2.1-6.9); NEUTROPHILS % 78.9 % (38.7-80.0); PLATELET COUNT 299 x10e3/uL (140-360); RED BLOOD COUNT 4.78 x10e6/uL (3.6-5.1)
[2023-03-31 07:07] LABS: ANION GAP 14.9 mmol/L (8-16); CALCIUM 9.3 mg/dL (8.4-10.2); CREATININE, SERUM 0.65 mg/dL (0.57-1.11); POTASSIUM 3.9 mmol/L (3.5-5.1)
[2023-03-31] MEDS: MONTELUKAST SODIUM 10 MG TAB PO SCH (09:17)
[2023-03-31] MEDS: ASPIRIN 81 MG ENTERIC COATED PO SCH (09:17)
[2023-03-31] MEDS: BUDESONIDE/FORMOTEROL 160/4.5MCG INHALER INH SCH ×3 (10:00→21:04)
[2023-03-31] MEDS ORDERED: HYDROXYZIN10 MG/5 ML PO (12:04)
[2023-03-31] MEDS: METHYLPREDNISOLONE SOD SUCC 125 MG/2ML VIAL IV SCH (20:07)
[2023-03-31] MEDS: HYDROXYZINE HCL 25 MG TAB PO PRN (21:02)
[2023-04-01] VITALS (22 sets, daily range): BP systolic 99–143; BP diastolic 53–75; PULSE 77–102; RESP 14–28; TEMP 97.3–98.4; O2SAT 98–100
[2023-04-01 06:41] LABS: BASOPHILS % 0.1 % (0.0-1.0); HEMATOCRIT 39.7 % (34.2-44.1); HEMOGLOBIN 12.8 g/dL (12.0-16.0); LYMPHOCYTES % 11.3 % (18.0-39.1); MEAN CORPUSCULAR HGB CONC 32.2 g/dL (31-35); MONOCYTES # (AUTO) 0.4 (0.2-0.8); MONOCYTES % 4.2 % (4.4-11.3); NEUTROPHILS # (AUTO) 7.8 (2.1-6.9); NEUTROPHILS % 84.1 % (38.7-80.0); PLATELET COUNT 252 x10e3/uL (140-360); RED BLOOD COUNT 4.41 x10e6/uL (3.6-5.1); RED CELL DISTRIBUTION WIDTH 12.2 % (11.7-14.4)
[2023-04-01 07:05] LABS: ALBUMIN 3.2 g/dL (3.5-5.0); ALBUMIN/GLOBULIN RATIO 1.2 (0.8-2.0); ANION GAP 11.8 mmol/L (8-16); CALCIUM 8.9 mg/dL (8.4-10.2); CREATININE, SERUM 0.61 mg/dL (0.57-1.11); POTASSIUM 3.8 mmol/L (3.5-5.1)
[2023-04-01] MEDS: ALBUTEROL/IPRATROPIUM 3 ML NEB NEB SCH ×5 (07:18→23:05)
[2023-04-01] MEDS: HYDROXYZINE HCL 25 MG TAB PO PRN ×2 (07:28→15:14)
[2023-04-01] MEDS: METHYLPREDNISOLONE SOD SUCC 125 MG/2ML VIAL IV SCH ×2 (07:28→19:18)
[2023-04-01] MEDS: ASPIRIN 81 MG ENTERIC COATED PO SCH (07:28)
[2023-04-01] MEDS: MONTELUKAST SODIUM 10 MG TAB PO SCH (07:28)
[2023-04-01] MEDS: BUDESONIDE/FORMOTEROL 160/4.5MCG INHALER INH SCH (19:00)
[2023-04-02] VITALS (16 sets, daily range): BP systolic 128–156; BP diastolic 61–76; PULSE 80–112; RESP 17–24; TEMP 98.3–98.7; O2SAT 96–100
[2023-04-02 06:34] LABS: BASOPHILS % 0.1 % (0.0-1.0); HEMATOCRIT 38.7 % (34.2-44.1); HEMOGLOBIN 12.2 g/dL (12.0-16.0); LYMPHOCYTES # (AUTO) 1.8 (1.0-3.2); LYMPHOCYTES % 13.7 % (18.0-39.1); MEAN CORPUSCULAR HEMOGLOBIN 28.8 pg (28-32); MEAN CORPUSCULAR HGB CONC 31.5 g/dL (31-35); MEAN CORPUSCULAR VOLUME 91.5 fL (81-99); MONOCYTES # (AUTO) 0.6 (0.2-0.8); MONOCYTES % 4.2 % (4.4-11.3); NEUTROPHILS # (AUTO) 10.9 (2.1-6.9); NEUTROPHILS % 81.6 % (38.7-80.0); PLATELET COUNT 244 x10e3/uL (140-360); RED BLOOD COUNT 4.23 x10e6/uL (3.6-5.1); RED CELL DISTRIBUTION WIDTH 12.5 % (11.7-14.4)
[2023-04-02 06:56] LABS: ALBUMIN/GLOBULIN RATIO 1.3 (0.8-2.0); ANION GAP 9.4 mmol/L (8-16); CALCIUM 9.1 mg/dL (8.4-10.2); CREATININE, SERUM 0.61 mg/dL (0.57-1.11); POTASSIUM 4.4 mmol/L (3.5-5.1)
[2023-04-02] MEDS: ALBUTEROL/IPRATROPIUM 3 ML NEB NEB SCH ×3 (07:28→19:40)
[2023-04-02] MEDS: BUDESONIDE/FORMOTEROL 160/4.5MCG INHALER INH SCH ×2 (07:28→19:00)
[2023-04-02] MEDS: DOXYCYCLINE HYCLATE TABLET 100 MG TAB PO SCH ×2 (08:58→16:42)
[2023-04-02] MEDS: ASPIRIN 81 MG ENTERIC COATED PO SCH (08:58)
[2023-04-02] MEDS: MONTELUKAST SODIUM 10 MG TAB PO SCH (08:58)
[2023-04-02] MEDS: METHYLPREDNISOLONE SOD SUCC 125 MG/2ML VIAL IV SCH ×2 (08:59→20:54)
[2023-04-02] MEDS ORDERED: ALPRAZOLAM 0.5 MG TAB PO PRN (09:00)
[2023-04-02] MEDS ORDERED: ENOXAPARIN 30 MG/0.3 ML SYR SC SCH (17:00)
[2023-04-02] MEDS ORDERED: ONDANSETRON HCL 4 MG ORAL DISINTEGRATING TAB PO PRN (18:00)
[2023-04-02] MEDS ORDERED: METHYLPREDNISOLONE SOD SUCC 125 MG/2ML VIAL ONE (20:43)
[2023-04-02] MEDS: HYDROXYZINE HCL 25 MG TAB PO PRN (20:48)
[2023-04-02] MEDS: GUAIFENESIN/CODEINE 5 ML LIQD PO PRN (22:58)
[2023-04-03 01:05] VITALS: PULSE 86; RESP 20; O2SAT 98
[2023-04-03] MEDS: ALBUTEROL/IPRATROPIUM 3 ML NEB NEB SCH ×2 (01:05→07:15)
[2023-04-03 04:00] VITALS: BP 122/65; PULSE 71; RESP 17; TEMP 97.9; O2SAT 98
[2023-04-03] MEDS: GUAIFENESIN/CODEINE 5 ML LIQD PO PRN (06:46)
[2023-04-03] MEDS: BUDESONIDE/FORMOTEROL 160/4.5MCG INHALER INH SCH (07:00)
[2023-04-03 07:25] LABS: BASOPHILS % 0.2 % (0.0-1.0); HEMATOCRIT 41.4 % (34.2-44.1); HEMOGLOBIN 12.8 g/dL (12.0-16.0); LYMPHOCYTES # (AUTO) 0.6 (1.0-3.2); LYMPHOCYTES % 5.5 % (18.0-39.1); MEAN CORPUSCULAR HEMOGLOBIN 28.8 pg (28-32); MEAN CORPUSCULAR HGB CONC 30.9 g/dL (31-35); MONOCYTES # (AUTO) 0.3 (0.2-0.8); MONOCYTES % 2.6 % (4.4-11.3); NEUTROPHILS # (AUTO) 10.2 (2.1-6.9); NEUTROPHILS % 91.3 % (38.7-80.0); PLATELET COUNT 271 x10e3/uL (140-360); RED BLOOD COUNT 4.45 x10e6/uL (3.6-5.1); RED CELL DISTRIBUTION WIDTH 12.5 % (11.7-14.4)
[2023-04-03 07:47] LABS: ALBUMIN 3.2 g/dL (3.5-5.0); ALBUMIN/GLOBULIN RATIO 1.2 (0.8-2.0); ANION GAP 10.5 mmol/L (8-16); CALCIUM 9.1 mg/dL (8.4-10.2); CREATININE, SERUM 0.58 mg/dL (0.57-1.11); POTASSIUM 4.5 mmol/L (3.5-5.1)
[2023-04-03 08:04] VITALS: BP 152/76; PULSE 76; RESP 18; TEMP 97.9; O2SAT 100
[2023-04-03] MEDS: DOXYCYCLINE HYCLATE TABLET 100 MG TAB PO SCH (08:22)
[2023-04-03] MEDS: ASPIRIN 81 MG ENTERIC COATED PO SCH (08:22)
[2023-04-03] MEDS: MONTELUKAST SODIUM 10 MG TAB PO SCH (08:22)
[2023-04-03] MEDS ORDERED: SODIUM CHLORIDE 0.9% 100 ML ONE (08:27)
[2023-04-03] MEDS: HYDROXYZINE HCL 25 MG TAB PO PRN (08:28)
[2023-04-03 08:44] VITALS: BP 152/76; PULSE 76; RESP 18; TEMP 97.9; O2SAT 100
[2023-04-03] MEDS ORDERED: PREDNISONE 20 MG TAB PO SCH (09:00)
[2023-04-03] MEDS ORDERED: PREDNISONE10 MG PO (09:54)
[2023-04-03] MEDS ORDERED: LASIX40 MG PO (09:54)
[2023-04-03] MEDS ORDERED: KLOR-CON20 MEQ PO (09:57)
[2023-04-03] MEDS ORDERED: DOXYCYCLINE HY100 MG PO (10:02)
[2023-04-03] MEDS ORDERED: METHYLPREDNISOLONE SOD SUCC 125 MG/2ML VIAL IV SCH (19:00)
== END 2023-04-03 10:45 | disposition home or self-care (01) | DRG 190 ==
LOC: ER 12:21 → ERHOLD 13:10 → ICU 14:41 → MED/SURG2 04-02 17:07
PROVIDERS: ADMIT Internal Medicine; ATTEND Internal Medicine
PROC: 02HV33Z Insertion of Infusion Device into Superior Vena Cava, Percutaneous Approach (ICD-10-PCS; principal; 2023-03-30)
PROC: B548ZZA Ultrasonography of Superior Vena Cava, Guidance (ICD-10-PCS; 2023-03-30)
DX: J44.0 Chronic obstructive pulmonary disease with (acute) lower respiratory infection (principal); I50.33 Acute on chronic diastolic (congestive) heart failure; J18.9 Pneumonia, unspecified organism; J96.21 Acute and chronic respiratory failure with hypoxia; E44.0 Moderate protein-calorie malnutrition; J98.11 Atelectasis; J44.1 Chronic obstructive pulmonary disease with (acute) exacerbation; I27.20 Pulmonary hypertension, unspecified; I11.0 Hypertensive heart disease with heart failure; E11.9 Type 2 diabetes mellitus without complications; F32.A Depression, unspecified; K21.9 Gastro-esophageal reflux disease without esophagitis; G89.29 Other chronic pain; R00.0 Tachycardia, unspecified; M54.9 Dorsalgia, unspecified; Z90.49 Acquired absence of other specified parts of digestive tract; Z68.22 Body mass index [BMI] 22.0-22.9, adult; Z99.81 Dependence on supplemental oxygen; Z79.82 Long term (current) use of aspirin; Z79.890 Hormone replacement therapy; Z79.899 Other long term (current) drug therapy; Z20.822 Contact with and (suspected) exposure to COVID-19
CPT/HCPCS: 36415; 36569; 51700; 71045; 80048; 80053; 83880; 84484; 85025; 87040; 87086; 93005; 93306; 94660; 94664; 94799; 99285; J0696; J1650; J1940; J2930; J3410; J3475; J7050; J7512

== ENCOUNTER 2025-04-26 22:27 | Inpatient (IN) | payer MEDICARE ==
[~2025-04-26] VITALS: Ht 144.8 cm; Wt 54.4 kg
[~2025-04-26 22:27] MED LIST changes: +DOXYCYCLINE HY100 MG PO; +HYDROXYZIN10 MG/5 ML PO; +KLOR-CON20 MEQ PO; +LASIX40 MG PO
[2025-04-26 22:52] LABS: BASOPHILS % 0.2 % (0.0-1.0); EOSINOPHILS % 0.1 % (0.0-6.0); HEMOGLOBIN 12.1 g/dL (12.0-16.0); LYMPHOCYTES # (AUTO) 0.6 (1.0-3.2); LYMPHOCYTES % 5.4 % (18.0-39.1); MEAN CORPUSCULAR HEMOGLOBIN 30.7 pg (28-32); MEAN CORPUSCULAR HGB CONC 31.8 g/dL (31-35); MEAN CORPUSCULAR VOLUME 96.4 fL (81-99); MONOCYTES # (AUTO) 0.3 (0.2-0.8); MONOCYTES % 2.8 % (4.4-11.3); NEUTROPHILS # (AUTO) 10.8 (2.1-6.9); NEUTROPHILS % 90.6 % (38.7-80.0); PLATELET COUNT 248 x10e3/uL (140-360); RED BLOOD COUNT 3.94 x10e6/uL (3.6-5.1); RED CELL DISTRIBUTION WIDTH 14.4 % (11.7-14.4); WHITE BLOOD COUNT 11.93 x10e3/uL (4.8-10.8)
[2025-04-26 23:16] LABS: ALANINE AMINOTRANSFERASE 35 IU/L (0-55); ALBUMIN 3.9 g/dL (3.5-5.0); ALBUMIN/GLOBULIN RATIO 1.6 (0.8-2.0); ALKALINE PHOSPHATASE 53 IU/L (40-150); ANION GAP 16.3 mmol/L (8-16); BILIRUBIN,TOTAL 0.7 mg/dL (0.2-1.2); BLOOD UREA NITROGEN 16 mg/dL (7-26); BUN/CREATININE RATIO 21 (6-25); CARBON DIOXIDE 30 mmol/L (22-29); CHLORIDE 97 mmol/L (98-107); CREATININE, SERUM 0.77 mg/dL (0.57-1.11); EST GLOMERULAR FILTRATION RATE 84 ML/MIN (>=60); GLUCOSE 145 mg/dL (74-118); POTASSIUM 4.3 mmol/L (3.5-5.1); SODIUM 139 mmol/L (136-145); TOTAL PROTEIN 6.3 g/dL (6.5-8.1)
[2025-04-26 23:23] LABS: TROPONIN I < 0.05 ng/mL (0.0-0.40)
[2025-04-26] MEDS ORDERED: SODIUM CHLORIDE FLUSH 10 ML SYR INJ PRN (23:45)
[2025-04-26] MEDS ORDERED: ONDANSETRON HCL INJ 2MG/ML 2ML 2 MG/ML VIAL IV PRN (23:45)
[2025-04-27] VITALS (17 sets, daily range): BP systolic 93–163; BP diastolic 54–96; PULSE 72–103; RESP 19–20; TEMP 97.7–98.7; O2SAT 95–100
[2025-04-27 00:15] LABS: CREATINE KINASE 536 IU/L (29-168)
[2025-04-27] MEDS: ALBUTEROL SULF 0.083% NEB SOLN 3 ML NEB NEB SCH (04:07)
[2025-04-27] MEDS ORDERED: HYOSCYAMINE0.125 M1 BU (04:31)
[2025-04-27] MEDS ORDERED: DEXAMETHASONE4 MG PO (04:31)
[2025-04-27] MEDS ORDERED: MECLIZINE HCL25 MG PO (04:31)
[2025-04-27] MEDS ORDERED: ONDANSETRON ODT4 MG PO (04:31)
[2025-04-27] MEDS ORDERED: HYDROCODON-ACE1 EAC9 PO (04:31)
[2025-04-27] MEDS ORDERED: OXYCODONE HCL20 M1 PO (04:31)
[2025-04-27 06:50] LABS: ALBUMIN 3.4 g/dL (3.5-5.0); ALBUMIN/GLOBULIN RATIO 1.4 (0.8-2.0); ANION GAP 16.4 mmol/L (8-16); BILIRUBIN,TOTAL 0.4 mg/dL (0.2-1.2); CREATININE, SERUM 0.79 mg/dL (0.57-1.11); POTASSIUM 3.4 mmol/L (3.5-5.1); TOTAL PROTEIN 5.9 g/dL (6.5-8.1)
[2025-04-27 07:00] LABS: BASOPHILS % 0.2 % (0.0-1.0); EOSINOPHILS % 0.1 % (0.0-6.0); HEMATOCRIT 35.5 % (34.2-44.1); HEMOGLOBIN 11.2 g/dL (12.0-16.0); LYMPHOCYTES # (AUTO) 1.3 (1.0-3.2); LYMPHOCYTES % 11.9 % (18.0-39.1); MEAN CORPUSCULAR HEMOGLOBIN 30.9 pg (28-32); MEAN CORPUSCULAR HGB CONC 31.5 g/dL (31-35); MEAN CORPUSCULAR VOLUME 98.1 fL (81-99); MONOCYTES # (AUTO) 0.7 (0.2-0.8); MONOCYTES % 6.1 % (4.4-11.3); NEUTROPHILS % 80.8 % (38.7-80.0); PLATELET COUNT 225 x10e3/uL (140-360); RED BLOOD COUNT 3.62 x10e6/uL (3.6-5.1); RED CELL DISTRIBUTION WIDTH 14.4 % (11.7-14.4); WHITE BLOOD COUNT 11.09 x10e3/uL (4.8-10.8)
[2025-04-27 07:16] LABS: TROPONIN I 0.023 ng/mL (0-0.300)
[2025-04-27] MEDS ORDERED: ALBUTEROL/IPRATROPIUM 3 ML NEB NEB PRN (07:45)
[2025-04-27] MEDS ORDERED: MONTELUKAST SODIUM 10 MG TAB PO PRN (07:45)
[2025-04-27] MEDS ORDERED: SIMETHICONE 80 MG CHEW PO PRN (07:45)
[2025-04-27] MEDS ORDERED: GUAIFENESIN/DEXTROMETHORPHAN LIQD 5 ML UDC NG PRN (07:45)
[2025-04-27] MEDS ORDERED: GABAPENTIN 300 MG CAP PO PRN (07:45)
[2025-04-27] MEDS ORDERED: ACETAMINOPHEN 325 MG TAB PO PRN (07:45)
[2025-04-27] MEDS ORDERED: MECLIZINE HCL 12.5 MG TAB PO PRN (07:45)
[2025-04-27] MEDS: LORATADINE 10 MG TAB PO SCH (08:51)
[2025-04-27] MEDS: ASPIRIN 81 MG ENTERIC COATED PO SCH (08:51)
[2025-04-27] MEDS: LEVOTHYROXINE SODIUM 25 MCG TABLET PO SCH (08:51)
[2025-04-27] MEDS: BENZONATATE 100 MG CAP PO SCH (08:51)
[2025-04-27] MEDS: FUROSEMIDE 40 MG TAB PO SCH (08:51)
[2025-04-27] MEDS: Doxycycline IV 100 MG in SODIUM CHLORIDE 0.9% 100 ML IV SCH (08:52)
[2025-04-27] MEDS: PANTOPRAZOLE SOD 40 MG TABEC PO SCH (08:52)
[2025-04-27] MEDS: ALPRAZOLAM 0.25 MG TAB PO SCH (08:53)
[2025-04-27] MEDS: AMLODIPINE BESYLATE 5 MG TAB PO SCH (08:53)
[2025-04-27] MEDS: METOPROLOL TARTRATE 25 MG TAB PO SCH (08:53)
[2025-04-27] MEDS: NON-FORMULARY MEDICATION (Lovastatin 20 MG) PO SCH (09:00)
[2025-04-27] MEDS: BUDESONIDE/FORMOTEROL 160/4.5MCG INHALER INH SCH (10:53)
[2025-04-27] MEDS: METHYLPREDNISOLONE SOD SUCC 40 MG/ML VIAL 1ML IV SCH (13:38)
[2025-04-27 16:04] LABS: TROPONIN I 0.011 ng/mL (0-0.300)
[2025-04-27] MEDS: ENOXAPARIN SOD INJ 40 MG/0.4 ML SYR SC SCH (16:54)
[2025-04-27] MEDS: CYCLOBENZAPRINE HCL 10 MG TAB PO PRN (19:32)
[2025-04-27] MEDS ORDERED: MELATONIN 3 MG TAB PO PRN (21:00)
[2025-04-27] MEDS: MONTELUKAST SODIUM 10 MG TAB PO SCH (21:51)
[2025-04-28] VITALS (14 sets, daily range): BP systolic 94–132; BP diastolic 61–92; PULSE 73–93; RESP 17–22; TEMP 97–98.4; O2SAT 97–100
[2025-04-28] MEDS ORDERED: IOPAMIDOL 370 MG/ML 100 ML INFUS..BTL INJ ONE (08:04)
[2025-04-29] VITALS (14 sets, daily range): BP systolic 107–184; BP diastolic 42–93; PULSE 86–126; RESP 18–22; TEMP 96.3–98.4; O2SAT 96–100
[2025-04-29 06:21] LABS: BASOPHILS % 0.1 % (0.0-1.0); HEMATOCRIT 41.4 % (34.2-44.1); HEMOGLOBIN 12.8 g/dL (12.0-16.0); LYMPHOCYTES # (AUTO) 0.5 (1.0-3.2); LYMPHOCYTES % 2.3 % (18.0-39.1); MEAN CORPUSCULAR HEMOGLOBIN 30.9 pg (28-32); MEAN CORPUSCULAR HGB CONC 30.9 g/dL (31-35); MONOCYTES # (AUTO) 0.7 (0.2-0.8); MONOCYTES % 3.1 % (4.4-11.3); NEUTROPHILS # (AUTO) 20.3 (2.1-6.9); PLATELET COUNT 245 x10e3/uL (140-360); RED BLOOD COUNT 4.14 x10e6/uL (3.6-5.1); RED CELL DISTRIBUTION WIDTH 14.4 % (11.7-14.4); WHITE BLOOD COUNT 21.78 x10e3/uL (4.8-10.8)
[2025-04-29 06:38] LABS: ALBUMIN 3.6 g/dL (3.5-5.0); ALBUMIN/GLOBULIN RATIO 1.3 (0.8-2.0); ANION GAP 16.9 mmol/L (8-16); BILIRUBIN,TOTAL 0.4 mg/dL (0.2-1.2); CALCIUM 9.3 mg/dL (8.4-10.2); CREATININE, SERUM 0.79 mg/dL (0.57-1.11); POTASSIUM 3.9 mmol/L (3.5-5.1); TOTAL PROTEIN 6.4 g/dL (6.5-8.1)
[2025-04-29] MEDS ORDERED: FUROSEMIDE INJ 10 MG/ML 4 ML VIAL IV SCH (09:00)
[2025-04-29 10:58] LABS: BAND NEUTROPHILS % (MANUAL) 1 %; LYMPHOCYTES % (MANUAL) 2 % (19-48); MONOCYTES % (MANUAL) 5 % (3.4-9.0); NEUTROPHILS % (MANUAL) 92 % (40-74)
[2025-04-29 10:59] LABS: PLATELET ESTIMATE ADEQUATE; PLATELET MORPHOLOGY COMMENT NORMAL; RBC MORPHOLOGY COMMENT NORMAL
[2025-04-29] MEDS: FUROSEMIDE 40 MG TAB PO SCH (11:27)
[2025-04-29] MEDS: DOCUSATE SODIUM 100 MG CAP PO PRN (14:24)
[2025-04-29 15:25] LABS: CORONAVIRUS COVID-19 AG NEGATIVE (NEGATIVE); INFLUENZA A AG NEGATIVE (NEGATIVE); INFLUENZA B AG NEGATIVE (NEGATIVE)
[2025-04-30] VITALS (13 sets, daily range): BP systolic 113–147; BP diastolic 66–88; PULSE 78–99; RESP 17–22; TEMP 98.1–98.4; O2SAT 96–100
[2025-04-30 06:23] LABS: BASOPHILS % 0.2 % (0.0-1.0); HEMATOCRIT 37.6 % (34.2-44.1); HEMOGLOBIN 11.7 g/dL (12.0-16.0); LYMPHOCYTES # (AUTO) 0.9 (1.0-3.2); LYMPHOCYTES % 6.8 % (18.0-39.1); MEAN CORPUSCULAR HEMOGLOBIN 30.6 pg (28-32); MEAN CORPUSCULAR HGB CONC 31.1 g/dL (31-35); MEAN CORPUSCULAR VOLUME 98.4 fL (81-99); MONOCYTES # (AUTO) 0.5 (0.2-0.8); NEUTROPHILS # (AUTO) 11.2 (2.1-6.9); NEUTROPHILS % 86.8 % (38.7-80.0); PLATELET COUNT 234 x10e3/uL (140-360); RED BLOOD COUNT 3.82 x10e6/uL (3.6-5.1); RED CELL DISTRIBUTION WIDTH 14.6 % (11.7-14.4); WHITE BLOOD COUNT 12.89 x10e3/uL (4.8-10.8)
[2025-04-30 07:02] LABS: ALBUMIN 3.2 g/dL (3.5-5.0); ALBUMIN/GLOBULIN RATIO 1.3 (0.8-2.0); ANION GAP 13.2 mmol/L (8-16); BILIRUBIN,TOTAL 0.3 mg/dL (0.2-1.2); CALCIUM 8.7 mg/dL (8.4-10.2); CREATININE, SERUM 0.68 mg/dL (0.57-1.11); POTASSIUM 4.2 mmol/L (3.5-5.1); TOTAL PROTEIN 5.7 g/dL (6.5-8.1)
[2025-04-30] MEDS ORDERED: BENZONATATE100 MG PO (07:06)
[2025-04-30] MEDS ORDERED: LORATADINE10 MG PO (07:06)
[2025-04-30] MEDS ORDERED: DOXYCYCLINE HY100 MG PO (07:06)
[2025-04-30] MEDS ORDERED: LASIX40 MG PO (07:06)
[2025-04-30] MEDS ORDERED: PREDNISONE20 MG PO (07:06)
[2025-04-30] MEDS ORDERED: CEPHALEXIN500 MG PO (07:06)
[2025-04-30] MEDS ORDERED: SINGULAIR10 MG PO (07:06)
[2025-05-01] VITALS: BP 117/69; PULSE 97; RESP 20; TEMP 98.7; O2SAT 100
[2025-05-01 04:00] VITALS: BP 114/70; PULSE 86; RESP 20; TEMP 98; O2SAT 99
[2025-05-01 08:00] VITALS: BP 128/72; PULSE 83; RESP 19; TEMP 98.1; O2SAT 99
[2025-05-01 08:49] VITALS: PULSE 92; RESP 20; O2SAT 97
[2025-05-01 11:32] VITALS: PULSE 86; RESP 20; O2SAT 100
[2025-05-01 12:00] VITALS: BP 114/77; PULSE 83; RESP 18; TEMP 98; O2SAT 100
== END 2025-05-01 15:35 | disposition hospice, home (50) | DRG 190 ==
LOC: ER 23:31 → ERHOLD 23:37 → MED/SURG3 04-27 02:26
PROVIDERS: ADMIT Internal Medicine; ATTEND Internal Medicine
PROC: 02HV33Z Insertion of Infusion Device into Superior Vena Cava, Percutaneous Approach (ICD-10-PCS; principal; 2025-04-26)
DX: J44.1 Chronic obstructive pulmonary disease with (acute) exacerbation (principal); I50.33 Acute on chronic diastolic (congestive) heart failure; J96.21 Acute and chronic respiratory failure with hypoxia; J96.22 Acute and chronic respiratory failure with hypercapnia; J81.1 Chronic pulmonary edema; I11.0 Hypertensive heart disease with heart failure; R62.7 Adult failure to thrive; Z99.81 Dependence on supplemental oxygen; E87.6 Hypokalemia; E03.9 Hypothyroidism, unspecified; K21.9 Gastro-esophageal reflux disease without esophagitis; D64.9 Anemia, unspecified; R22.0 Localized swelling, mass and lump, head; F41.9 Anxiety disorder, unspecified; R91.1 Solitary pulmonary nodule; M54.9 Dorsalgia, unspecified; Z11.52 Encounter for screening for COVID-19; Z79.82 Long term (current) use of aspirin; Z79.890 Hormone replacement therapy; Z79.52 Long term (current) use of systemic steroids; Z79.51 Long term (current) use of inhaled steroids; Z90.49 Acquired absence of other specified parts of digestive tract; Z90.710 Acquired absence of both cervix and uterus; F17.210 Nicotine dependence, cigarettes, uncomplicated
CPT/HCPCS: 36415; 36569; 71045; 71260; 80053; 82550; 82948; 83690; 83880; 84439; 84443; 84484; 85025; 93005; 93306; 94640; 94760; 94799; 99252; 99284; J0696; J1650; J2470; J2919; J7050; Q9967

== ENCOUNTER 2025-06-26 01:43 | Inpatient (IN) | payer MEDICARE, OTHER ==
[~2025-06-26] VITALS: Ht 144.8 cm; Wt 54.4 kg
[2025-06-26] VITALS (12 sets, daily range): BP systolic 97–137; BP diastolic 50–82; PULSE 88–159; RESP 18–25; TEMP 97.7–98.2; O2SAT 92–100
[~2025-06-26 01:43] MED LIST changes: +BENZONATATE100 MG PO; +CEPHALEXIN500 MG PO; +DEXAMETHASONE4 MG PO; +HYDROCODON-ACE1 EAC9 PO; +HYOSCYAMINE0.125 M1 BU; +LORATADINE10 MG PO; +MECLIZINE HCL25 MG PO; +ONDANSETRON ODT4 MG PO; +OXYCODONE HCL20 M1 PO
[2025-06-26] MEDS ORDERED: ALBUTEROL/IPRATROPIUM 3 ML NEB NEB ONE (02:00)
[2025-06-26] MEDS ORDERED: SODIUM CHLORIDE FLUSH 10 ML SYR IV PRN (02:00)
[2025-06-26 02:13] LABS: ABG BASE EXCESS 10.0 mmol/L (-2 - 3); ABG HCO3 35 mmol/L (22-26); ABG OXYGEN SATURATION 100.0 % (95-98); ABG PCO2 54 mmHg (35-45); ABG PH 7.42 (7.35-7.45); ABG PO2 177 mmHg (80-105); ABG TCO2 36
[2025-06-26 02:24] LABS: BASOPHILS % 0.1 % (0.0-1.0); EOSINOPHILS % 0.2 % (0.0-6.0); LYMPHOCYTES % 7.0 % (18.0-39.1); MONOCYTES % 6.7 % (4.4-11.3); NEUTROPHILS % 85.6 % (38.7-80.0); RED CELL DISTRIBUTION WIDTH 12.7 % (11.7-14.4)
[2025-06-26 02:39] LABS: EST GLOMERULAR FILTRATION RATE 90 ML/MIN (>=60)
[2025-06-26] MEDS: SODIUM CHLORIDE 0.9% 1000ML 1,000 ML IV ONE ×2 (02:51)
[2025-06-26] MEDS: METHYLPREDNISOLONE SOD SUCC 125 MG/2ML VIAL IV ONE (02:52)
[2025-06-26 03:10] LABS: CORONAVIRUS COVID-19 AG NEGATIVE (NEGATIVE)
[2025-06-26] MEDS: METOPROLOL TARTRATE INJ 1 MG/ML VIAL IV ONE (03:30)
[2025-06-26] MEDS: LEVOFLOXACIN 750MG/D5W 150ML 150 ML IV STA (03:31)
[2025-06-26 04:01] LABS: LEUKOCYTE ESTERASE ,URINE NEGATIVE (NEGATIVE); PROTEIN,URINE DIPSTICK NEGATIVE (NEGATIVE); URINE UROBILINOGEN 0.2 mg/dL (0.2 - 1)
[2025-06-26 04:11] LABS: EPITHELIAL CELLS,URINE MANY /LPF; WBC,URINE (MAN) 21-50 /HPF (0-5)
[2025-06-26] MEDS ORDERED: SODIUM CHLORIDE FLUSH 10 ML SYR INJ PRN (05:30)
[2025-06-26] MEDS ORDERED: ONDANSETRON HCL INJ 2MG/ML 2ML 2 MG/ML VIAL IV PRN (05:30)
[2025-06-26] MEDS: LORAZEPAM INJ 2 MG/ML VIAL IV PRN (06:25)
[2025-06-26] MEDS ORDERED: HYDROCODONE/APAP 10MG-325MG TAB PO PRN (11:30)
[2025-06-26] MEDS ORDERED: GABAPENTIN 300 MG CAP PO PRN (11:30)
[2025-06-26] MEDS ORDERED: ALBUTEROL/IPRATROPIUM 3 ML NEB NEB PRN (11:30)
[2025-06-26] MEDS: ALBUTEROL/IPRATROPIUM 3 ML NEB NEB SCH (12:00)
[2025-06-26] MEDS: BENZONATATE 100 MG CAP PO SCH (16:02)
[2025-06-26] MEDS: BUDESONIDE/FORMOTEROL 160/4.5MCG INHALER INH SCH (16:40)
[2025-06-26] MEDS: METOPROLOL TARTRATE 25 MG TAB PO SCH (16:49)
[2025-06-26] MEDS: MONTELUKAST SODIUM 10 MG TAB PO SCH (20:54)
[2025-06-26] MEDS ORDERED: LEVOFLOXACIN 750MG/D5W 150ML 150 ML IV SCH (21:00)
[2025-06-27] VITALS (12 sets, daily range): BP systolic 114–149; BP diastolic 49–73; PULSE 69–94; RESP 18–22; TEMP 97–98; O2SAT 98–100
[2025-06-27] MEDS: LEVOTHYROXINE SODIUM 25 MCG TABLET PO SCH (05:44)
[2025-06-27 07:47] LABS: BASOPHILS % 0.2 % (0.0-1.0); EOSINOPHILS % 0.0 % (0.0-6.0); LYMPHOCYTES % 6.3 % (18.0-39.1); MONOCYTES % 3.6 % (4.4-11.3); NEUTROPHILS % 89.3 % (38.7-80.0); RED CELL DISTRIBUTION WIDTH 12.8 % (11.7-14.4)
[2025-06-27 08:04] LABS: EST GLOMERULAR FILTRATION RATE 97.0 ML/MIN (>=60)
[2025-06-27] MEDS: FUROSEMIDE 40 MG TAB PO SCH (08:19)
[2025-06-27] MEDS: LORATADINE 10 MG TAB PO SCH (08:20)
[2025-06-27] MEDS: PANTOPRAZOLE SOD 40 MG TABEC PO SCH (08:20)
[2025-06-27] MEDS: ASPIRIN 81 MG ENTERIC COATED PO SCH (08:21)
[2025-06-27] MEDS: POTASSIUM CHLORIDE 10MEQ EA PO SCH (22:40)
[2025-06-28] VITALS (8 sets, daily range): BP systolic 88–163; BP diastolic 53–66; PULSE 85–99; RESP 15–22; TEMP 97.7–98.7; O2SAT 96–100
[2025-06-28] MEDS: HYDROCODONE/APAP 5MG-325MG TAB PO PRN (09:17)
[2025-06-28 14:09] LABS: EST GLOMERULAR FILTRATION RATE 98.0 ML/MIN (>=60); PHOSPHORUS 3.2 MG/DL (2.3-4.7)
[2025-06-29] VITALS (8 sets, daily range): BP systolic 134–167; BP diastolic 65–94; PULSE 84–96; RESP 17–21; TEMP 97.6–98.5; O2SAT 95–100
[2025-06-29 06:49] LABS: BASOPHILS % 0.5 % (0.0-1.0); EOSINOPHILS % 7.4 % (0.0-6.0); LYMPHOCYTES % 22.5 % (18.0-39.1); MONOCYTES % 10.7 % (4.4-11.3); NEUTROPHILS % 58.4 % (38.7-80.0); RED CELL DISTRIBUTION WIDTH 13.2 % (11.7-14.4)
[2025-06-29 07:16] LABS: EST GLOMERULAR FILTRATION RATE 97.0 ML/MIN (>=60)
[2025-07-05 06:35] LABS: ABG BASE EXCESS 10.0 mmol/L (-2 - 3); ABG HCO3 35 mmol/L (22-26); ABG OXYGEN SATURATION 100.0 % (95-98); ABG PCO2 54 mmHg (35-45); ABG PH 7.42 (7.35-7.45); ABG PO2 177 mmHg (80-105); ABG TCO2 36
== END 2025-06-29 14:00 | disposition home or self-care (01) | DRG 177 ==
LOC: ER 01:50 → ERHOLD 05:30 → MED/SURG3 07:38
PROVIDERS: ADMIT Internal Medicine; ATTEND Internal Medicine
PROC: 3E0333Z Introduction of Anti-inflammatory into Peripheral Vein, Percutaneous Approach (ICD-10-PCS; principal; 2025-06-26)
PROC: 4A033R1 Measurement of Arterial Saturation, Peripheral, Percutaneous Approach (ICD-10-PCS; 2025-06-26)
DX: J69.0 Pneumonitis due to inhalation of food and vomit (principal); J96.21 Acute and chronic respiratory failure with hypoxia; J44.1 Chronic obstructive pulmonary disease with (acute) exacerbation; I50.32 Chronic diastolic (congestive) heart failure; D63.8 Anemia in other chronic diseases classified elsewhere; R62.7 Adult failure to thrive; Z99.81 Dependence on supplemental oxygen; I11.0 Hypertensive heart disease with heart failure; I50.9 Heart failure, unspecified; E11.9 Type 2 diabetes mellitus without complications; I77.1 Stricture of artery; R53.81 Other malaise; K21.9 Gastro-esophageal reflux disease without esophagitis; R91.8 Other nonspecific abnormal finding of lung field; F32.9 Major depressive disorder, single episode, unspecified; F41.9 Anxiety disorder, unspecified; F32.A Depression, unspecified; M54.9 Dorsalgia, unspecified; Z11.52 Encounter for screening for COVID-19; E66.9 Obesity, unspecified; Z68.26 Body mass index [BMI] 26.0-26.9, adult; Z79.52 Long term (current) use of systemic steroids; Z79.82 Long term (current) use of aspirin; Z79.51 Long term (current) use of inhaled steroids; Z79.890 Hormone replacement therapy; Z90.49 Acquired absence of other specified parts of digestive tract; Z90.710 Acquired absence of both cervix and uterus; Z87.891 Personal history of nicotine dependence
CPT/HCPCS: 36415; 36600; 71045; 74176; 80048; 80053; 81001; 82805; 82948; 83605; 83735; 83880; 84100; 84484; 85025; 85379; 87040; 87086; 93005; 94664; 94760; 94799; 99284; J0696; J2060; J2470; J2919; J7030; J7050